=== PATIENT | female | born 1955 | race Caucasian/White ===

== ENCOUNTER 2020-03-10 13:11 | Emergency (ER) | payer MEDICARE, OTHER ==
[~2020-03-10] VITALS: Ht 157.4 cm; Wt 81.8 kg
[2020-03-10] MEDS ORDERED: IBUP-1780 PO (13:53)
--- NOTE | 2020-03-10 13:53 | ED General ---
General Chief Complaint: General Problems/Pain Stated Complaint: GENERAL PAIN History of Present Illness Date Seen by Provider: Mar 10, 2020 Time Seen by Provider: 13:45 Initial Comments 64-year-old female presents to the ER by private vehicle with complaints of generalized aches and pains all over her body. Asked to localize her pain, she states well she's got pain in her right hip since having a hip replacement with some pain in her leg on the right side as well. She states the surgery was a few weeks ago to a few months ago in [place]. Asked to her primary care doctor was, she states she doesn't have one as she just moved to this area a couple weeks ago. States she doesn't have any pain medication. Denies any recent injury or trauma or any new or acute pain. Allergies and Home Medications Allergies Coded Allergies: No Known Drug Allergies (Unverified , 03/10/20) Home Medications Ibuprofen 800 Mg Tablet, 800 MG PO Q8H PRN for PAIN Prescribed by: IZZY VAIL on 03/10/20 6053 Patient Home Medication List Home Medication List Reviewed: Yes Review of Systems Review of Systems Constitutional: see HPI; No dizziness, No fever, No malaise, No weakness Respiratory: No cough, No short of breath Cardiovascular: No chest pain, No edema Gastrointestinal: No abdominal pain, No nausea, No vomiting Musculoskeletal: see HPI; No neck pain Past Ynyqmnq-Ohomys-Imiodi Hx Past Med/Social Hx: Reviewed Nursing Past Med/Soc Hx Patient Social History Recent Foreign Travel: No Contact w/Someone Who Travel: No Physical Exam Vital Signs Capillary Refill : Height, Weight, BMI Height: '" Weight: lbs. oz. kg; BMI Method: General Appearance: No Apparent Distress, WD/WN Respiratory: Chest Non Tender, Lungs Clear, Normal Breath Sounds Cardiovascular: Regular Rate, Rhythm, No Edema, No Gallop, No JVD, No Murmur, Normal Peripheral Pulses Gastrointestinal: Non Tender, Soft Extremity: Normal Capillary Refill, Normal Inspection, Non Tender, No Calf Tenderness Neurologic/Psychiatric: Alert, Oriented x3, No Motor/Sensory Deficits, Normal Mood/Affect Skin: Normal Color, Warm/Dry Progress/Results/Core Measures Suspected Sepsis SIRS Temperature: Pulse: Respiratory Rate: Blood Pressure / Mean: Results/Orders Vital Signs/I&O Capillary Refill : Departure Impression Primary Impression: Chronic pain Qualified Codes: G89.29 - Other chronic pain Disposition: HOME, SELF-CARE Condition: Stable Departure-Patient Inst. Decision time for Depature: 13:51 Referrals: [facility]/ [facility],LOCAL PHYSICIAN (PCP) Primary Care Physician EMMA SULLIVAN MD Patient Instructions: Chronic Pain (DC) Add. Discharge Instructions: Call the [facility] to establish a Primary care doctor in the next couple weeks. Call Dr Sullivan's office regarding pain in your R hip All discharge instructions reviewed with patient and/or family. Voiced understanding. Scripts Ibuprofen (Ibuprofen) 800 Mg Tablet 800 MG PO Q8H PRN for PAIN, #30 TAB 0 Refills Prov: IZZY VAIL DO 03/10/20 IZZY VAIL DO Mar 10, 2020 13:53
[2020-03-10 14:04] VITALS: BP 159/71
== END 2020-03-10 14:04 | disposition home or self-care (01) ==
LOC: EDUNIT# 13:11 → ER FS 13:14
DX: G89.29 Other chronic pain (principal)
CPT/HCPCS: 99281

== ENCOUNTER 2020-04-07 13:51 | Inpatient (IN) | payer MEDICARE ==
[~2020-04-07] VITALS: Ht 165.1 cm; Wt 76.5 kg
[~2020-04-07 13:51] MED LIST: IBUP-1780 PO
[2020-04-07 14:11] LABS: BASOPHILS # (AUTO) 0.1 10^3/uL (0.0-0.1); BASOPHILS % (AUTO) 0 % (0-10); EOSINOPHILS % (AUTO) 0 % (0-10); HEMATOCRIT 43 % (35-52); LYMPHOCYTES # (AUTO) 1.4 X 10^3 (1.0-4.0); LYMPHOCYTES % (AUTO) 10 % (12-44); MEAN CORPUSCULAR HEMOGLOBIN 25 PG (25-34); MEAN CORPUSCULAR HGB CONC 30 G/DL (32-36); MEAN CORPUSCULAR VOLUME 84 FL (80-99); MEAN PLATELET VOLUME 12.3 FL (7.4-10.4); MONOCYTES # (AUTO) 0.8 X 10^3 (0.0-1.0); MONOCYTES % (AUTO) 6 % (0-12); NEUTROPHILS % (AUTO) 83 % (42-75); PLATELET COUNT 363 10^3/uL (130-400); WHITE BLOOD COUNT 14.4 10^3/uL (4.3-11.0)
[2020-04-07] MEDS: NS IV 1000 ML 1,000 ML IV SCH ×2 (14:11→15:08)
--- NOTE | 2020-04-07 14:11 | ED General ---
General Chief Complaint: Altered Mental Status Stated Complaint: UNRESPONSIVE Source of Information: Patient History of Present Illness Date Seen by Provider: Apr 07, 2020 Time Seen by Provider: 13:55 Initial Comments 64-year-old female presents via EMS and unresponsive state. Called to a hotel room where she was found naked in on the bed and unresponsive. An IO was started in her left lower extremity, noted heart rate in the 170s and atrial fibrillation, given 15 mg of diltiazem en route as well as some IV fluids with no significant change upon arrival. Patient does open her eyes spontaneously and attempts to answer some questions, however incoherent. Blood sugar "high". PMHx- signif for IDDM and CBAG Allergies and Home Medications Allergies Coded Allergies: No Known Drug Allergies (Unverified , 03/10/20) Home Medications Ibuprofen 800 Mg Tablet, 800 MG PO Q8H PRN for PAIN Prescribed by: IZZY VAIL on 03/10/20 1353 Patient Home Medication List Home Medication List Reviewed: Yes Review of Systems Review of Systems Constitutional: other (unresponsive- unable to complete ROS due to pt Mental Status) Past Quwcber-Casbpb-Dzepxl Hx Past Med/Social Hx: Reviewed Nursing Past Med/Soc Hx Patient Social History Alcohol Use: Denies Use Recreational Drug Use: No Smoking Status: Unknown if Ever Smoked 2nd Hand Smoke Exposure: No Recent Foreign Travel: No Contact w/Someone Who Travel: No Recent Hopitalizations: No Seasonal Allergies Seasonal Allergies: No Past Medical History Surgeries: Yes (Right hip, Left ankle) Appendectomy, Section, Gallbladder, Hysterectomy, Orthopedic Respiratory: Yes COPD Cardiac: No High Cholesterol, Hypertension Neurological: Yes Neuropathy Genitourinary: No Gastrointestinal: Yes Gastroesophageal Reflux Musculoskeletal: Yes (Congenital Left hand deformity) Endocrine: Yes Diabetes, Insulin dep HEENT: No Cancer: No Psychosocial: Yes Bipolar Integumentary: No Blood Disorders: No Physical Exam Vital Signs Vital Signs - First Documented 04/07/20 13:51 Temp 36.8 Pulse 141 Resp 15 B/P (MAP) 110/89 (96) Pulse Ox 100 O2 Flow Rate 4.00 Capillary Refill : Height, Weight, BMI Height: '" Weight: lbs. oz. kg; 33.00 BMI Method: General Appearance: No Apparent Distress, WD/WN, Other (unresponsive) Eyes: Bilateral Eye PERRL, Bilateral Eye EOMI HEENT: PERRL/EOMI, Other (severely dry MM and lips) Neck: Non Tender, Supple Respiratory: Chest Non Tender, Lungs Clear, Normal Breath Sounds, No Accessory Muscle Use, No Respiratory Distress Cardiovascular: Normal Peripheral Pulses, Irregularly Irregular; No JVD; Tachycardia Gastrointestinal: Non Tender, Soft, Other (firmness Right abdominal- mass?) Back: No CVA Tenderness, No Vertebral Tenderness Extremity: Normal Inspection, Non Tender Neurologic/Psychiatric: Other (unresponsive) Skin: Normal Color, Warm/Dry Focused Exam Lactate Level 04/07/20 14:10: Lactic Acid Level 1.77 Lactic Acid Level Laboratory Tests Test 04/07/20 14:10 Lactic Acid Level 1.77 MMOL/L (0.50-2.00) Progress/Results/Core Measures Suspected Sepsis SIRS Temperature: Pulse: Respiratory Rate: Laboratory Tests 04/07/20 13:52: White Blood Count 14.4H Blood Pressure / Mean: 04/07/20 14:10: Lactic Acid Level 1.77 Laboratory Tests 04/07/20 13:52: Creatinine 1.43H, INR Comment 1.1, Platelet Count 363, Total Bilirubin 0.4 Results/Orders Lab Results Laboratory Tests Test 04/07/20 13:52 04/07/20 14:00 04/07/20 14:05 04/07/20 14:10 Range/Units White Blood Count 14.4 H 4.3-11.0 10^3/uL Red Blood Count 5.10 4.35-5.85 10^6/uL Hemoglobin 13.0 11.5-16.0 G/DL Hematocrit 43 35-52 % Mean Corpuscular Volume 84 80-99 FL Mean Corpuscular Hemoglobin 25 25-34 PG Mean Corpuscular Hemoglobin Concent 30 L 32-36 G/DL Red Cell Distribution Width 15.1 H 10.0-14.5 % Platelet Count 363 130-400 10^3/uL Mean Platelet Volume 12.3 H 7.4-10.4 FL Immature Granulocyte % (Auto) 1 % Neutrophils (%) (Auto) 83 H 42-75 % Lymphocytes (%) (Auto) 10 L 12-44 % Monocytes (%) (Auto) 6 0-12 % Eosinophils (%) (Auto) 0 0-10 % Basophils (%) (Auto) 0 0-10 % Neutrophils # (Auto) 12.0 H 1.8-7.8 X 10^3 Lymphocytes # (Auto) 1.4 1.0-4.0 X 10^3 Monocytes # (Auto) 0.8 0.0-1.0 X 10^3 Eosinophils # (Auto) 0.0 0.0-0.3 10^3/uL Basophils # (Auto) 0.1 0.0-0.1 10^3/uL Immature Granulocyte # (Auto) 0.1 0.0-0.1 10^3/uL Neutrophils % (Manual) 81 % Lymphocytes % (Manual) 15 % Monocytes % (Manual) 4 % Blood Morphology Comment NORMAL Prothrombin Time 14.8 H 12.2-14.7 SEC INR Comment 1.1 0.8-1.4 Sodium Level 141 135-145 MMOL/L Potassium Level 5.3 H 3.6-5.0 MMOL/L Chloride Level 99 98-107 MMOL/L Carbon Dioxide Level 12 L 21-32 MMOL/L Anion Gap 30 H 5-14 MMOL/L Blood Urea Nitrogen 56 H 7-18 MG/DL Creatinine 1.43 H 0.60-1.30 MG/DL Estimat Glomerular Filtration Rate 37 BUN/Creatinine Ratio 39 Glucose Level 811 *H 70-105 MG/DL Calcium Level 10.3 H 8.5-10.1 MG/DL Corrected Calcium 10.5 H 8.5-10.1 MG/DL Magnesium Level 3.2 H 1.6-2.4 MG/DL Total Bilirubin 0.4 0.1-1.0 MG/DL Aspartate Amino Transf (AST/SGOT) 15 5-34 U/L Alanine Aminotransferase (ALT/SGPT) 11 0-55 U/L Alkaline Phosphatase 205 H 40-136 U/L Troponin I < 0.30 <0.30 NG/ML Total Protein 8.1 6.4-8.2 GM/DL Albumin 3.8 3.2-4.5 GM/DL Acetaminophen Level < 10 L 10-30 UG/ML Serum Alcohol < 10 <10 MG/DL Blood Gas Puncture Site Blood Gas Patient Temperature Arterial Blood pH 7.29 *L 7.37-7.43 Arterial Blood Partial Pressure CO2 27 L 35-45 MMHG Arterial Blood Partial Pressure O2 208 H 79-93 MMHG Arterial Blood HCO3 13 *L 23-27 MMOL/L Arterial Blood Total CO2 13.8 L 21.0-31.0 MMOL/L Arterial Blood Oxygen Saturation 100 94-100 % Arterial Blood Base Excess -12.1 L -2.5-2.5 MMOL/L Luke Test Blood Gas Ventilator Setting Blood Gas Inspired Oxygen Urine Color YELLOW Urine Clarity CLEAR Urine pH 6.0 5-9 Urine Specific [place] <=1.005 1.016-1.022 Urine Protein NEGATIVE NEGATIVE Urine Glucose (UA) 3+ H NEGATIVE Urine Ketones 1+ H NEGATIVE Urine Nitrite NEGATIVE NEGATIVE Urine Bilirubin NEGATIVE NEGATIVE Urine Urobilinogen 0.2 < = 1.0 MG/DL Urine Leukocyte Esterase NEGATIVE NEGATIVE Urine RBC (Auto) NEGATIVE NEGATIVE Urine RBC NONE /HPF Urine WBC NONE /HPF Urine Squamous Epithelial Cells 0-2 /HPF Urine Crystals NONE /LPF Urine Bacteria NEGATIVE /HPF Urine Casts NONE /LPF Urine Mucus NEGATIVE /LPF Urine Yeast FEW H /HPF Urine Culture Indicated NO Urine Opiates Screen POSITIVE H NEGATIVE Urine Oxycodone Screen NEGATIVE NEGATIVE Urine Methadone Screen NEGATIVE NEGATIVE Urine Propoxyphene Screen NEGATIVE NEGATIVE Urine Barbiturates Screen NEGATIVE NEGATIVE Ur Tricyclic Antidepressants Screen POSITIVE H NEGATIVE Urine Phencyclidine Screen NEGATIVE NEGATIVE Urine Amphetamines Screen NEGATIVE NEGATIVE Urine Methamphetamines Screen NEGATIVE NEGATIVE Urine Benzodiazepines Screen POSITIVE H NEGATIVE Urine Cocaine Screen NEGATIVE NEGATIVE Urine Cannabinoids Screen NEGATIVE NEGATIVE Lactic Acid Level 1.77 0.50-2.00 MMOL/L My Orders Orders - IZZY VAIL DO Cbc With Automated Diff (04/07/20 13:56) Comprehensive Metabolic Panel (04/07/20 13:56) Alcohol (04/07/20 13:56) Acetaminophen (04/07/20 13:56) Lactic Acid Analyzer (04/07/20 13:56) Drug Screen Stat (Urine) (04/07/20 13:56) Magnesium (04/07/20 13:56) Protime With Inr (04/07/20 13:56) Troponin I Fs (04/07/20 13:56) Urinalysis (04/07/20 13:56) Ed Iv/Invasive Line Start (04/07/20 13:56) Ekg Tracing (04/07/20 13:56) Chest 1 View Ap/Pa Only (04/07/20 13:56) Ct Head Wo (04/07/20 13:56) Ns Iv 1000 Ml (Sodium Chloride 0.9%) (04/07/20 14:00) Diltiazem Injection (Cardizem Injection) (04/07/20 14:00) Manual Differential (04/07/20 13:52) Arterial Blood Gas (04/07/20 14:30) Insulin Regular Drip (Myxredlin 100 Unit (04/07/20 14:45) Medications Given in ED Current Medications Medications Dose Ordered Sig/Divina Route Start Time Stop Time Status Last Admin Dose Admin Diltiazem HCl 20 mg ONCE ONCE IVP 04/07/20 14:00 04/07/20 14:01 DC 04/07/20 14:11 20 MG Vital Signs/I&O 04/07/20 13:51 Temp 36.8 Pulse 141 Resp 15 B/P (MAP) 110/89 (96) Pulse Ox 100 O2 Flow Rate 4.00 Capillary Refill : ECG Initial ECG Impression Date: Apr 07, 2020 Initial ECG Impression Time: 14:00 Initial ECG Rate: 164 Initial ECG Rhythm: A Fib/Flutter Initial ECG Comparisson: No Previous ECG Available Departure Communication (Admissions) Time/Spoke to Admitting Phy: 14:[address] Wood and he accepts for admission to ICU. Pt w improving MS, starting on Insulin gtt. Impression Primary Impression: DKA (diabetic ketoacidoses) Qualified Codes: E10.10 - Type 1 diabetes mellitus with ketoacidosis without coma Additional Impression: Altered mental status Qualified Codes: R41.82 - Altered mental status, unspecified Disposition: 09 ADMITTED INPATIENT Condition: Stable Admissions Decision to Admit Reason: Admit from ER (General) Decision to Admit/Date: Apr 07, 2020 Time/Decision to Admit Time: 14:50 Departure-Patient Inst. Referrals: NO,LOCAL PHYSICIAN (PCP/Family) Primary Care Physician IZZY VAIL DO Apr 07, 2020 14:11
[2020-04-07 14:20] LABS: INR 1.1 (0.8-1.4); PROTHROMBIN TIME PATIENT 14.8 SEC (12.2-14.7)
[2020-04-07 14:25] LABS: BACTERIA,URINE NEGATIVE /HPF; BILIRUBIN,URINE NEGATIVE (NEGATIVE); CLARITY,URINE CLEAR; COLOR,URINE YELLOW; GLUCOSE, URINE (UA) 3+ (NEGATIVE); KETONES,URINE 1+ (NEGATIVE); LEUKOCYTE ESTERASE ,URINE NEGATIVE (NEGATIVE); NITRITE,URINE NEGATIVE (NEGATIVE); PROTEIN,URINE NEGATIVE (NEGATIVE); SQUAMOUS EPITHELIAL CELL,UR 0-2 /HPF; YEAST,URINE FEW /HPF
[2020-04-07 14:31] LABS: BUN/CREATININE RATIO 39; CARBON DIOXIDE 12 MMOL/L (21-32); CHLORIDE 99 MMOL/L (98-107); CREATININE SERUM 1.43 MG/DL (0.60-1.30); GFR ESTIMATED 37; POTASSIUM 5.3 MMOL/L (3.6-5.0); SODIUM 141 MMOL/L (135-145)
[2020-04-07 14:32] LABS: ACETAMINOPHEN < 10 UG/ML (10-30); ALANINE AMINOTRANSFERASE 11 U/L (0-55); ALBUMIN 3.8 GM/DL (3.2-4.5); ALKALINE PHOSPHATASE 205 U/L (40-136); BILIRUBIN,TOTAL 0.4 MG/DL (0.1-1.0); CALCIUM 10.3 MG/DL (8.5-10.1); MAGNESIUM 3.2 MG/DL (1.6-2.4); TOTAL PROTEIN 8.1 GM/DL (6.4-8.2)
--- NOTE | 2020-04-07 14:35 | Diagnostic Imaging Report ---
INDICATION: Patient found unresponsive. EXAMINATION: Frontal chest obtained at 02:19 p.m. FINDINGS: There is cardiomegaly and poststernotomy change. There is no pneumothorax or definite focal infiltrate. The left lung base is not well seen but is probably technical. IMPRESSION: Cardiomegaly and poststernotomy change. Limited study but no definite infiltrate. Left lung base is not well seen due to technique, consider follow-up as indicated. Dictated by: Dictated on workstation # [id number]
[2020-04-07 14:36] LABS: GLUCOSE 811 MG/DL (70-105)
--- NOTE | 2020-04-07 14:36 | Diagnostic Imaging Report ---
PROCEDURE: CT head without contrast. TECHNIQUE: Multiple contiguous axial images were obtained through the brain without the use of intravenous contrast. Auto Exposure Controls were utilized during the CT exam to meet ALARA standards for radiation dose reduction. INDICATION: Unresponsive. COMPARISON: No prior studies are available for comparison. FINDINGS: Ventricles and sulci are appropriate for the patient's age. No sulcal effacement or midline shift is identified. No acute intra-axial or extra-axial hemorrhage is detected. Cisterns are patent. Visualized paranasal sinuses are clear. IMPRESSION: No acute intracranial process is detected. Dictated by: Dictated on workstation # [id number]
[2020-04-07 14:39] LABS: ABG BASE EXCESS -12.1 MMOL/L (-2.5-2.5); ABG OXYGEN SATURATION 100 % (94-100); ABG PCO2 27 MMHG (35-45); ABG PH 7.29 (7.37-7.43); ABG PO2 208 MMHG (79-93); ABG TCO2 13.8 MMOL/L (21.0-31.0)
[2020-04-07 14:43] LABS: AMPHETAMINE SCREEN, URINE NEGATIVE (NEGATIVE); BARBITURATE SCREEN URINE NEGATIVE (NEGATIVE); BENZODIAZEPINES SCREEN URINE POSITIVE (NEGATIVE); CANNABINOID SCREEN, URINE NEGATIVE (NEGATIVE); COCAINE SCREEN URINE NEGATIVE (NEGATIVE); METHADONE STAT NEGATIVE (NEGATIVE); METHAMPHETAMINE SCREEN URINE S NEGATIVE (NEGATIVE); OPIATE SCREEN URINE POSITIVE (NEGATIVE); OXYCODONE STAT NEGATIVE (NEGATIVE); PROPOXYPHENE STAT NEGATIVE (NEGATIVE); TRICYCLIC ANTIDEPRESSANTS SCRE POSITIVE (NEGATIVE)
[2020-04-07 14:48] LABS: LYMPHOCYTES % (MANUAL) 15 %; MONOCYTES % (MANUAL) 4 %; NEUTROPHILS % (MANUAL) 81 %; RBC MORPH NORMAL
[2020-04-07] MEDS ORDERED: NS IV 1000 ML 1,000 ML ONE (16:36)
--- NOTE | 2020-04-07 16:49 | NUR ---
DR ZAVALA NOTIFIED OF PT'S HR 120S-140S. AFIB/AFLUTTER.
[2020-04-07] MEDS ORDERED: NS IV 1000 ML 1,000 ML IV SCH (16:53)
[2020-04-07] MEDS ORDERED: POTASSIUM CL 10MEQ/50ML IVPB 50 ML IV SCH (17:00)
[2020-04-07] MEDS ORDERED: CATHETER FLUSH 10 ML SYR IV PRN (17:00)
[2020-04-07] MEDS ORDERED: ENOXAPARIN 100 MG/1 ML (LOVENOX) SYR SC SCH (17:45)
[2020-04-07] MEDS ORDERED: dilTIAZem DRIP PRE-MIX 125 ML IV SCH (17:45)
[2020-04-07 17:50] LABS: CREATININE SERUM 1.87 MG/DL (0.60-1.30); POTASSIUM 3.9 MMOL/L (3.6-5.0)
[2020-04-07] MEDS: ENOXAPARIN 80 MG/0.8 ML (LOVENOX) SYR SC SCH (18:05)
[2020-04-07 18:10] LABS: CALCIUM 9.4 MG/DL (8.5-10.1)
[2020-04-07] MEDS: 1/2 NS IV SOLUTION 1,000 ML IV SCH ×3 (18:12→22:50)
[2020-04-07] MEDS: POTASSIUM CL 10MEQ/50ML IVPB 50 ML IV SCH ×3 (18:12→23:02)
[2020-04-07 20:07] LABS: CALCIUM 8.8 MG/DL (8.5-10.1); CREATININE SERUM 1.66 MG/DL (0.60-1.30); POTASSIUM 4.1 MMOL/L (3.6-5.0)
[2020-04-08] MEDS: POTASSIUM CL 10MEQ/50ML IVPB 50 ML IV SCH ×3 (01:07→08:17)
[2020-04-08] MEDS: D5 1/2 NS 1000 ML IV SOLUTION 1,000 ML IV SCH ×2 (01:18→05:44)
--- NOTE | 2020-04-08 03:46 | Pulmonary Consultation ---
IRENE LYNN MED STUDENT 04/08/20 0346: History of Present Illness History of Present Illness Date Seen by Provider: Apr 08, 2020 Time Seen by Provider: 03:30 Date of Admission History of Present Illness CC; unresponsive, hyperglycemia HPI: Cristina Roberts is a 67 y/o female with hx of DM and s/p CABG who presents via EMS after being found unresponsive in her hotel room yesterday. Patient was found naked on her bed and unresponsive, HR in 170s w/afib. EMS placed an IO in LLE and gave 15mg Diltiazam with no change on arrival. Patient was able to open eyes in ER but answered questions incoherently. Cxr inconclusive but no obvious pathology per report, CT head normal, EKG showed Afib/aflutter, glucose at 811, Anion gap of 30, Creatinine at 1.43, pH of 7.39, BHB >4.50, positive urine ketones. Cardiology was consulted for afib. She was started on fluids and insulin for hyperglycemia as well as Diltiazam for afib. Patient currently able to answer questions and follow commands coherently. states she feels miserable but currently denies CP, SOB, abdominal pain and vomiting. Patient dozing off during exam. Allergies and Home Medications Allergies Coded Allergies: No Known Drug Allergies (Unverified , 03/10/20) Home Medications Ibuprofen 800 Mg Tablet, 800 MG PO Q8H PRN for PAIN Prescribed by: IZZY VAIL on 03/10/20 1353 Past Vtwwhsr-Bjaomi-Lcmzoc Hx Past Med/Social Hx: Reviewed Nursing Past Med/Soc Hx Patient Social History Alcohol Use: Denies Use Recreational Drug Use: No Smoking Status: Unknown if Ever Smoked 2nd Hand Smoke Exposure: No Recent Foreign Travel: No Contact w/Someone Who Travel: No Recent Infectious Disease Expo: No Recent Hopitalizations: No Seasonal Allergies Seasonal Allergies: No Past Medical History Surgeries: Yes (Right hip, Left ankle) Appendectomy, Section, Gallbladder, Hysterectomy, Orthopedic Respiratory: Yes COPD Cardiac: No High Cholesterol, Hypertension Neurological: Yes Neuropathy Genitourinary: No Gastrointestinal: Yes Gastroesophageal Reflux Musculoskeletal: Yes (Congenital Left hand deformity) Endocrine: Yes Diabetes, Insulin dep HEENT: No Cancer: No Psychosocial: Yes Bipolar Integumentary: No Blood Disorders: No Family Medical History Patient reports no known family medical history. Review of Systems Constitutional: Malaise; No: Fever, Chills Eyes: No: Conjunctivae inflammation, Eyelid inflammation ENT: No: Mouth pain, Mouth swelling Respiratory: Cough; No: Shortness of breath, Wheezing Cardiovascular: No: Chest Pain, Edema Gastrointestinal: No: Vomiting, Abdominal Pain Genitourinary: No Incontinence, No Hematuria Musculoskeletal: No: hand pain, leg pain Skin: No: Rash, Jaundice Neurological: Confusion (apparently resolved) Sepsis Event Evaluation Height, Weight, BMI Height: '" Weight: lbs. oz. kg; 27.22 BMI Method: Exam Exam Vital Signs Date Time Temp Pulse Resp B/P (MAP) Pulse Ox O2 Delivery O2 Flow Rate FiO2 04/08/20 02:00 100 Room Air 04/08/20 01:00 100 04/08/20 00:00 101 14 116/71 100 Room Air 04/08/20 00:00 100 Room Air 04/07/20 23:46 36.6 04/07/20 23:00 101 13 128/69 100 Room Air 04/07/20 22:00 106 14 122/71 100 Room Air 04/07/20 21:00 97 15 130/67 100 Room Air 04/07/20 20:00 100 Room Air 04/07/20 20:00 112 15 123/81 100 Room Air 04/07/20 19:27 36.9 04/07/20 19:00 114 04/07/20 19:00 101 13 112/69 100 Room Air 04/07/20 18:00 117 11 115/86 100 Room Air 04/07/20 17:05 135 04/07/20 17:00 126 20 131/81 99 Room Air 04/07/20 16:45 36.7 04/07/20 16:30 151 23 136/86 96 Room Air 04/07/20 16:25 100 Room Air 04/07/20 15:44 36.8 128 16 122/57 (96) 98 Room Air 04/07/20 13:51 36.8 141 15 110/89 (96) 100 4.00 l I & O 04/08/20 07:00 Intake Total 7250 ml Output Total 1200 ml Balance 6050 ml Height & Weight Height: '" Weight: lbs. oz. kg; 27.22 BMI Method: General Appearance: No Apparent Distress, WD/WN, Other (unresponsive) HEENT: PERRL/EOMI, Other (severely dry MM and lips) Neck: Non Tender, Supple Respiratory: Chest Non Tender, Lungs Clear, Normal Breath Sounds, No Accessory Muscle Use, No Respiratory Distress Cardiovascular: Normal Peripheral Pulses, Irregularly Irregular; No JVD; Tachycardia Capillary Refill: Less Than 3 Seconds Peripheral Pulses: 2+ Carotid (R), 2+ Carotid (L); 1+ Dorsalis Pedis (R), 1+ Left Dors-Pedis (L); 2+ Radial Pulses (R), 2+ Radial Pulses (L) Gastrointestinal: non tender, soft, no organomegaly, no pulsatile mass Extremity: Normal Capillary Refill, Normal Inspection, Non Tender, No Calf Tenderness, No Pedal Edema Neurologic/Psychiatric: Alert, Oriented x3, Normal Mood/Affect, Other Skin: Normal Color, Warm/Dry Results Lab Laboratory Tests 04/07/20 13:52 04/07/20 17:27 04/07/20 19:45 Assessment/Plan Assessment/Plan Diabetic Ketoacidosis w/ HAGMA -improving -maintain insulin drip, D5/Kcl -NS IV Afib -cardiology consulted -maintain Diltiazam drip possible DAVID -IV fluids, monitor Hypernatremia, -likely from dehydration, continue IVF and monitor Hyperchloremia -as above TIKI RITTER DO 04/08/20 0430: Allergies and Home Medications Allergies Coded Allergies: No Known Drug Allergies (Unverified , 03/10/20) Home Medications Ibuprofen 800 Mg Tablet, 800 MG PO Q8H PRN for PAIN Prescribed by: IZZY VAIL on 03/10/20 1353 Past Jhlkvzp-Pnxlqk-Lrlydc Hx Family Medical History Patient reports no known family medical history. Review of Systems Time Seen by Provider: 04:29 Assessment/Plan Assessment/Plan Acute DKA -Labs pending Afib -cardiology consulted -maintain Diltiazam drip possible DAVID -IV fluids, monitor Hypernatremia, -likely from dehydration, continue IVF and monitor Hyperchloremia -as above IRENE LYNN MED STUDENT Apr 08, 2020 03:46 TIKI RITTER DO Apr 08, 2020 04:30
[2020-04-08] MEDS: 1/2 NS IV SOLUTION 1,000 ML IV SCH (05:13)
[2020-04-08 05:57] LABS: BASOPHILS % (AUTO) 0 % (0-10); EOSINOPHILS % (AUTO) 0 % (0-10); HEMATOCRIT 37 % (35-52); HEMOGLOBIN 12.1 g/dL (11.5-16.0); LYMPHOCYTES % (AUTO) 23 % (12-44); MEAN CORPUSCULAR HEMOGLOBIN 31 pg (25-34); MEAN CORPUSCULAR HGB CONC 33 g/dL (32-36); MEAN CORPUSCULAR VOLUME 92 fL (80-99); MEAN PLATELET VOLUME 9.3 fL (9.0-12.2); MONOCYTES # (AUTO) 0.8 10^3/uL (0.0-1.0); MONOCYTES % (AUTO) 9 % (0-12); NEUTROPHILS % (AUTO) 67 % (42-75); PLATELET COUNT 197 10^3/uL (130-400)
[2020-04-08 06:17] LABS: BUN/CREATININE RATIO 29; CALCIUM 8.6 MG/DL (8.5-10.1); CARBON DIOXIDE 22 MMOL/L (21-32); CHLORIDE 110 MMOL/L (98-107); CREATININE SERUM 0.83 MG/DL (0.60-1.30); GFR ESTIMATED > 60; GLUCOSE 120 MG/DL (70-105); MAGNESIUM 2.3 MG/DL (1.6-2.4); PHOSPHORUS 2.4 MG/DL (2.3-4.7); POTASSIUM 4.6 MMOL/L (3.6-5.0); SODIUM 143 MMOL/L (135-145)
[2020-04-08] MEDS: ENOXAPARIN 80 MG/0.8 ML (LOVENOX) SYR SC SCH (06:39)
--- NOTE | 2020-04-08 07:35 | Diagnostic Imaging Report ---
INDICATION: Dyspnea EXAMINATION: Chest 04/08/2020 COMPARISON: 04/07/2020 FINDINGS: The heart is prominent. Pulmonary vasculature is congested. No ash edema is seen but there is atelectasis versus infiltrate. Left lung base with a tiny adjacent effusion. IMPRESSION: 1. Pulmonary vascular congestion. 2. Possible infiltrate and effusion left lung base. Dictated by: Dictated on workstation # [id number]
--- NOTE | 2020-04-08 09:23 | Consultation-Cardiology ---
HPI-Cardiology Cardiology Consultation Date of Consultation 04/08/20 Date of Admission Time Seen by Provider: 09:20 Indication: atrial fibrillation HPI 67 years old lady with history of coronary artery disease, CABG, diabetes mellitus, patient had change in mental status, she was found unresponsive in her hotel room. Tachycardic. On my evaluation she is more awake and oriented. Reported that she follows with a woods boss in [place]. Denied any chest pain. No palpitation, was having some nausea and fatigue. Home Medications & Allergies Allergies: Coded Allergies: No Known Drug Allergies (Unverified , 03/10/20) Home Medication List Reviewed: Yes ETT-Pzftlk-Culpxr Hx Patient Social History Alcohol Use: Denies Use Recreational Drug Use: No Smoking Status: Unknown if Ever Smoked 2nd Hand Smoke Exposure: No Recent Foreign Travel: No Recent Infectious Disease Expo: No Recent Hopitalizations: No Past Medical History Discussed below Family Medical History Family History: Patient reports no known family medical history. Review of Systems-General Review of Systems Constitutional: malaise, weakness EENTM: see HPI, no symptoms reported Respiratory: see HPI; No cough, No dyspnea on exertion, No hemoptysis, No orthopnea, No phlegm, No short of breath, No stridor, No wheezing, No other Cardiovascular: see HPI; No chest pain, No edema, No Hx of Intervention, No palpitations, No syncope, No vascular heart diseas, No other Gastrointestinal: see HPI, nausea Genitourinary: no symptoms reported, see HPI Musculoskeletal: no symptoms reported, see HPI Skin: no symptoms reported, see HPI Psychiatric/Neurological: No Symptoms Reported, See HPI Reviewed Test Results Reviewed Test Results Lab Laboratory Tests Test 04/07/20 13:52 04/07/20 14:00 04/07/20 14:05 04/07/20 14:10 Range/Units White Blood Count 14.4 H 4.3-11.0 10^3/uL Red Blood Count 5.10 4.35-5.85 10^6/uL Hemoglobin 13.0 11.5-16.0 G/DL Hematocrit 43 35-52 % Mean Corpuscular Volume 84 80-99 FL Mean Corpuscular Hemoglobin 25 25-34 PG Mean Corpuscular Hemoglobin Concent 30 L 32-36 G/DL Red Cell Distribution Width 15.1 H 10.0-14.5 % Platelet Count 363 130-400 10^3/uL Mean Platelet Volume 12.3 H 7.4-10.4 FL Immature Granulocyte % (Auto) 1 % Neutrophils (%) (Auto) 83 H 42-75 % Lymphocytes (%) (Auto) 10 L 12-44 % Monocytes (%) (Auto) 6 0-12 % Eosinophils (%) (Auto) 0 0-10 % Basophils (%) (Auto) 0 0-10 % Neutrophils # (Auto) 12.0 H 1.8-7.8 X 10^3 Lymphocytes # (Auto) 1.4 1.0-4.0 X 10^3 Monocytes # (Auto) 0.8 0.0-1.0 X 10^3 Eosinophils # (Auto) 0.0 0.0-0.3 10^3/uL Basophils # (Auto) 0.1 0.0-0.1 10^3/uL Immature Granulocyte # (Auto) 0.1 0.0-0.1 10^3/uL Neutrophils % (Manual) 81 % Lymphocytes % (Manual) 15 % Monocytes % (Manual) 4 % Blood Morphology Comment NORMAL Prothrombin Time 14.8 H 12.2-14.7 SEC INR Comment 1.1 0.8-1.4 Sodium Level 141 135-145 MMOL/L Potassium Level 5.3 H 3.6-5.0 MMOL/L Chloride Level 99 98-107 MMOL/L Carbon Dioxide Level 12 L 21-32 MMOL/L Anion Gap 30 H 5-14 MMOL/L Blood Urea Nitrogen 56 H 7-18 MG/DL Creatinine 1.43 H 0.60-1.30 MG/DL Estimat Glomerular Filtration Rate 37 BUN/Creatinine Ratio 39 Glucose Level 811 *H 70-105 MG/DL Calcium Level 10.3 H 8.5-10.1 MG/DL Corrected Calcium 10.5 H 8.5-10.1 MG/DL Magnesium Level 3.2 H 1.6-2.4 MG/DL Total Bilirubin 0.4 0.1-1.0 MG/DL Aspartate Amino Transf (AST/SGOT) 15 5-34 U/L Alanine Aminotransferase (ALT/SGPT) 11 0-55 U/L Alkaline Phosphatase 205 H 40-136 U/L Troponin I < 0.30 <0.30 NG/ML Total Protein 8.1 6.4-8.2 GM/DL Albumin 3.8 3.2-4.5 GM/DL Acetaminophen Level < 10 L 10-30 UG/ML Serum Alcohol < 10 <10 MG/DL Blood Gas Puncture Site Blood Gas Patient Temperature Arterial Blood pH 7.29 *L 7.37-7.43 Arterial Blood Partial Pressure CO2 27 L 35-45 MMHG Arterial Blood Partial Pressure O2 208 H 79-93 MMHG Arterial Blood HCO3 13 *L 23-27 MMOL/L Arterial Blood Total CO2 13.8 L 21.0-31.0 MMOL/L Arterial Blood Oxygen Saturation 100 94-100 % Arterial Blood Base Excess -12.1 L -2.5-2.5 MMOL/L Luke Test Blood Gas Ventilator Setting Blood Gas Inspired Oxygen Urine Color YELLOW Urine Clarity CLEAR Urine pH 6.0 5-9 Urine Specific [place] <=1.005 1.016-1.022 Urine Protein NEGATIVE NEGATIVE Urine Glucose (UA) 3+ H NEGATIVE Urine Ketones 1+ H NEGATIVE Urine Nitrite NEGATIVE NEGATIVE Urine Bilirubin NEGATIVE NEGATIVE Urine Urobilinogen 0.2 < = 1.0 MG/DL Urine Leukocyte Esterase NEGATIVE NEGATIVE Urine RBC (Auto) NEGATIVE NEGATIVE Urine RBC NONE /HPF Urine WBC NONE /HPF Urine Squamous Epithelial Cells 0-2 /HPF Urine Crystals NONE /LPF Urine Bacteria NEGATIVE /HPF Urine Casts NONE /LPF Urine Mucus NEGATIVE /LPF Urine Yeast FEW H /HPF Urine Culture Indicated NO Urine Opiates Screen POSITIVE H NEGATIVE Urine Oxycodone Screen NEGATIVE NEGATIVE Urine Methadone Screen NEGATIVE NEGATIVE Urine Propoxyphene Screen NEGATIVE NEGATIVE Urine Barbiturates Screen NEGATIVE NEGATIVE Ur Tricyclic Antidepressants Screen POSITIVE H NEGATIVE Urine Phencyclidine Screen NEGATIVE NEGATIVE Urine Amphetamines Screen NEGATIVE NEGATIVE Urine Methamphetamines Screen NEGATIVE NEGATIVE Urine Benzodiazepines Screen POSITIVE H NEGATIVE Urine Cocaine Screen NEGATIVE NEGATIVE Urine Cannabinoids Screen NEGATIVE NEGATIVE Lactic Acid Level 1.77 0.50-2.00 MMOL/L Test 04/07/20 16:36 04/07/20 17:23 04/07/20 17:27 04/07/20 18:10 Range/Units Glucometer 578 *H 270 H 470 *H 70-110 MG/DL Sodium Level 149 H 135-145 MMOL/L Potassium Level 3.9 3.6-5.0 MMOL/L Chloride Level 111 #H 98-107 MMOL/L Carbon Dioxide Level 13 L 21-32 MMOL/L Anion Gap 22 H 5-14 MMOL/L Blood Urea Nitrogen 49 H 7-18 MG/DL Creatinine 1.87 H 0.60-1.30 MG/DL Estimat Glomerular Filtration Rate 27 BUN/Creatinine Ratio 26 Glucose Level 591 *H 70-105 MG/DL Calcium Level 9.4 8.5-10.1 MG/DL Beta-Hydroxybutyrate (Chem panel) > 4.50 H 0.00-0.27 MMOL/L Test 04/07/20 19:24 04/07/20 19:45 04/07/20 20:22 04/07/20 21:16 Range/Units Glucometer 402 *H 361 H 342 H 70-110 MG/DL Sodium Level 150 H 135-145 MMOL/L Potassium Level 4.1 3.6-5.0 MMOL/L Chloride Level 116 H 98-107 MMOL/L Carbon Dioxide Level 16 L 21-32 MMOL/L Anion Gap 18 H 5-14 MMOL/L Blood Urea Nitrogen 44 H 7-18 MG/DL Creatinine 1.66 H 0.60-1.30 MG/DL Estimat Glomerular Filtration Rate 31 BUN/Creatinine Ratio 27 Glucose Level 453 *H 70-105 MG/DL Calcium Level 8.8 8.5-10.1 MG/DL Test 04/07/20 22:22 04/07/20 23:41 04/08/20 00:34 04/08/20 01:45 Range/Units Glucometer 322 H 244 H 190 H 171 H 70-110 MG/DL Test 04/08/20 02:40 04/08/20 03:27 04/08/20 04:22 04/08/20 05:20 Range/Units Glucometer 169 H 177 H 182 H 70-110 MG/DL White Blood Count 9.0 4.3-11.0 10^3/uL Red Blood Count 3.97 3.80-5.11 10^6/uL Hemoglobin 12.1 11.5-16.0 g/dL Hematocrit 37 35-52 % Mean Corpuscular Volume 92 80-99 fL Mean Corpuscular Hemoglobin 31 25-34 pg Mean Corpuscular Hemoglobin Concent 33 32-36 g/dL Red Cell Distribution Width 13.9 10.0-14.5 % Platelet Count 197 130-400 10^3/uL Mean Platelet Volume 9.3 9.0-12.2 fL Immature Granulocyte % (Auto) 1 % Neutrophils (%) (Auto) 67 42-75 % Lymphocytes (%) (Auto) 23 12-44 % Monocytes (%) (Auto) 9 0-12 % Eosinophils (%) (Auto) 0 0-10 % Basophils (%) (Auto) 0 0-10 % Neutrophils # (Auto) 6.0 1.8-7.8 10^3/uL Lymphocytes # (Auto) 2.0 1.0-4.0 10^3/uL Monocytes # (Auto) 0.8 0.0-1.0 10^3/uL Eosinophils # (Auto) 0.0 0.0-0.3 10^3/uL Basophils # (Auto) 0.0 0.0-0.1 10^3/uL Immature Granulocyte # (Auto) 0.1 0.0-0.1 10^3/uL Sodium Level 143 135-145 MMOL/L Potassium Level 4.6 3.6-5.0 MMOL/L Chloride Level 110 H 98-107 MMOL/L Carbon Dioxide Level 22 21-32 MMOL/L Anion Gap 11 5-14 MMOL/L Blood Urea Nitrogen 24 H 7-18 MG/DL Creatinine 0.83 0.60-1.30 MG/DL Estimat Glomerular Filtration Rate > 60 BUN/Creatinine Ratio 29 Glucose Level 120 H 70-105 MG/DL Calcium Level 8.6 8.5-10.1 MG/DL Phosphorus Level 2.4 2.3-4.7 MG/DL Magnesium Level 2.3 1.6-2.4 MG/DL Beta-Hydroxybutyrate (Chem panel) 0.07 0.00-0.27 MMOL/L Test 04/08/20 05:25 04/08/20 06:38 04/08/20 07:44 04/08/20 08:37 Range/Units Glucometer 210 H 184 H 171 H 153 H 70-110 MG/DL Physical Exam Physical Exam Vital Signs Vital Signs - First Documented 04/07/20 04/07/20 13:51 15:44 Temp 36.8 Pulse 141 Resp 15 B/P (MAP) 110/89 (96) Pulse Ox 100 O2 Delivery Room Air O2 Flow Rate 4.00 Capillary Refill : Less Than 3 SecondsLess Than 3 Seconds Height, Weight, BMI Height: '" Weight: lbs. oz. kg; 27.22 BMI Method: General Appearance: No Apparent Distress, WD/WN, Other (unresponsive) Eyes: Bilateral Eye PERRL, Bilateral Eye EOMI HEENT: PERRL/EOMI, Other (severely dry MM and lips) Neck: Non Tender, Supple Respiratory: Chest Non Tender, Lungs Clear, Normal Breath Sounds, No Accessory Muscle Use, No Respiratory Distress Cardiovascular: Normal Peripheral Pulses, Irregularly Irregular; No JVD; Tachycardia Gastrointestinal: Non Tender, Soft, Other (firmness Right abdominal- mass?) Back: No CVA Tenderness, No Vertebral Tenderness Extremity: Normal Capillary Refill, Normal Inspection, Non Tender, No Calf Tenderness, No Pedal Edema Neurologic/Psychiatric: Alert, Oriented x3, Normal Mood/Affect, Other Skin: Normal Color, Warm/Dry A/P-Cardiology Admission Diagnosis Atrial fibrillation Tachycardia Diabetic ketoacidosis Change in mental status Assessment/Plan Atrial fibrillation with rapid ventricular response, started on diltiazem drip, still borderline tachycardic, I will switch her to short acting diltiazem was 60 mg every 6 hours and monitor her tolerance and response. She will need to start on oral anticoagulation. Diabetic ketoacidosis, blood sugar is better, insulin drip is managed by primary care team Change in mental status, delirium, better at this time, probably secondary to DKA. Improving. Managed by primary care team Coronary artery disease, history of CABG. Start aspirin and monitor Questionable hyperlipidemia, I will evaluate lipid profile Clinical Quality Measures DVT/VTE Risk/Contraindication: Risk Factor Score Per Nursin RFS Level Per Nursing on Admit: 4+=Very High TREMAINE LEGGETT MD Apr 08, 2020 09:23
[2020-04-08 09:44] LABS: CHOLESTEROL 209 MG/DL (< 200); HDL CHOLESTEROL 39 MG/DL (40-60); TRIGLYCERIDES 250 MG/DL (<150); VLDL CHOLESTEROL 50 MG/DL (5-40)
[2020-04-08] MEDS: inSUlin ASPART (NovoLOG) 1 UNIT/0.01 ML (CHARGE PER UNIT) SC SCH ×3 (11:43→21:28)
--- NOTE | 2020-04-08 11:44 | History & Physical-Hospitalist ---
EMANI LEHMAN MED STUDENT 04/08/20 1144: History of Present Illness HPI/Chief Complaint Cathleen Roberts is a 64y/o F with PMH of IDDM, CABG with s/p, peripheral neuropathy, HTN, COPD and Bipolar disorder. Pt presented to the ED at 13:55 with altered AMS via EMS after being found unresponsive in her hotel room. EMS services found her in afib with HR in 170s. Blood glucose at ED was 811, ABG pH 7.29 and BHB 4.5. When I visited with pt this morning, she was fully alert and oriented, pt states she is feeling 'much better'. Pt tells us she was in the hospital two weeks ago for DKA in [place], and that she recently moved to the area but does not have a PCP yet. Pt states she checks are blood glucose regularly and that levels average around 200, pt states she takes her insulin regularly too, but she does confide that she was visiting her son who she hasn't seen in years who is 'not a good person' and that the visit went poorly and she 'is worried for him'. Pt denies any chest pain, palpitations, recent fever, increased cough or sputum production. Source: patient, RN notes reviewed, EMS notes reviewed Date Seen 04/08/20 Attending Physician Gonzales Zavala MD PCP No,Local Physician Referring Physician Date of Admission Apr 07, 2020 at 16:24 Home Medications & Allergies Home Medications Reviewed patient Home Medication Reconciliation performed by pharmacy medication reconciliations pharmacy order entry technician and/or nursing. Patients Allergies have been reviewed. Allergies Allergies Coded Allergies No Known Drug Allergies ([id number]/15/20) Past Bbmizuo-Qzgxsz-Ochncy Hx Past Med/Social Hx: Reviewed Nursing Past Med/Soc Hx Patient Social History Alcohol Use: Denies Use Recreational Drug Use: No Smoking Status: Unknown if Ever Smoked 2nd Hand Smoke Exposure: No Recent Foreign Travel: No Contact w/other who traveled: No Recent Hopitalizations: No Recent Infectious Disease Expo: No Seasonal Allergies Seasonal Allergies: No Past Medical History Surgeries: Appendectomy, Section, Gallbladder, Hysterectomy, Orthopedic Cardiac: High Cholesterol, Hypertension Neurological: Neuropathy Gastrointestinal: Gastroesophageal Reflux Endocrine: Diabetes, Insulin dep Psychosocial: Bipolar History of Blood Disorders: No Family History Patient reports no known family medical history. Review of Systems Constitutional: No chills, No dizziness, No fever Respiratory: No cough, No dyspnea on exertion, No phlegm, No short of breath Cardiovascular: No chest pain, No palpitations, No syncope Gastrointestinal: No abdominal pain; constipation (acute 3-4 days ); No diarrhea, No nausea, No vomiting Genitourinary: dysuria, frequency Physical Exam Physical Exam Vital Signs Vital Signs - First Documented 04/07/20 04/07/20 13:51 15:44 Temp 36.8 Pulse 141 Resp 15 B/P (MAP) 110/89 (96) Pulse Ox 100 O2 Delivery Room Air O2 Flow Rate 4.00 Capillary Refill : Less Than 3 SecondsLess Than 3 Seconds Height, Weight, BMI Height: '" Weight: lbs. oz. kg; 27.22 BMI Method: General Appearance: No Apparent Distress, WD/WN Eyes: Bilateral Eye Normal Inspection, Bilateral Eye PERRL, Bilateral Eye EOMI HEENT: PERRL/EOMI, Normal ENT Inspection Neck: Full Range of Motion, Non Tender Respiratory: No Accessory Muscle Use, No Respiratory Distress, Crackles, Decreased Breath Sounds Cardiovascular: No JVD, No Murmur, Normal Peripheral Pulses, Irregularly Irregular Gastrointestinal: Normal Bowel Sounds, Non Tender, Soft Rectal: Deferred Extremity: Pedal Edema, Other (Large blister on sole of R foot, lesion between 4th and 5th digit of L foot. ) Neurologic/Psychiatric: Alert, Oriented x3, Normal Mood/Affect, physician practice market manager II-XII Norm as Tested, Sensory Deficit (sensory neuropathy in b/l feet ) Skin: Normal Color, Warm/Dry Results Results/Procedures Labs Laboratory Tests 04/07/20 13:52 04/07/20 17:27 04/07/20 19:45 04/08/20 05:20 Patient resulted labs reviewed. Assessment/Plan Admission Diagnosis DKA Admission Status: Inpatient Order (span 2 midnights) Reason for Inpatient Admission: altered AMS, DKA Assessment and Plan Altered AMS 2/2 to DKA and dehydration DKA Likely 2/2 non-compliance and improper medication use Vs infectious etiology. Blood glucose 120 today, and anion gap closed to 11. d/c insulin drip. Start Determir SSI Continue KCl via IV Pulmonology following, appreciate recommendations. 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 Consult psychiatric social worker to follow up about pts home life conditions. Unlikely Pneumonia 04/08 CXR showed possible infiltrate and effusion in LL base. Procalcitonin today 0.08 Order CXR tomorrow. Afib Cardiology following appreciate recommendations Diltiazem drip d/c. Started on PO meds. HR controlled. DAVID Elevated BUN/creatinine yesterday, likely 2/2 dehydration causing prerenal DAVID. Creatinine returned to baseline today, resolved. Continue IV fluid rehydration. Peripheral Neuropathy Pt has several lesions on both feet that require care. Wound care consulted, appreciate recommendations. Acute Constipation 3-4 day hx without BM, per pt this is abnormal Start bowel regiment. HTN Restart home regiment. Hypercholesterolemia Restart home regiment. COPD Restart home regiment. DVT Prophylaxis Pt on Xarelto and Lovenox. CHADS-VASc score: 5/9, pt high risk for embolization. Clinical Quality Measures DVT/VTE Risk/Contraindication: Risk Factor Score Per Nursin RFS Level Per Nursing on Admit: 4+=Very High GONZALES ZAVALA MD 04/08/20 1503: History of Present Illness Time Seen by a Provider: 09:25 Past Clrotsz-Mphqdg-Sherde Hx Past Med/Social Hx: Reviewed Nursing Past Med/Soc Hx Family History Patient reports no known family medical history. Results Results/Procedures Imaging: Reviewed Imaging Report Assessment/Plan Admission Diagnosis Reason for Inpatient Admission: DKA requiring IV insulin AFib RVR requiring IV antiarrhythmics Assessment and Plan Cristina Roberts was admitted with poorly controlled diabetes and diabeteic ketoacidosis. We are treating her with IV insulin and she is being transitioned off the drip to subcutaneous insulin. She is also being treated for AFib with RVR by IV Cardizem and is being transitioned to oral medications. Pulmonology and Cardiology are assisting with her care. She will transfer to the floor if able to be maintained off IV insulin and Cardizem. Diagnosis/Problems Diagnosis/Problems (1) DKA (diabetic ketoacidoses) Status: Acute Qualifiers: Diabetes mellitus type: type 1 Diabetes mellitus complication detail: without coma Qualified Codes: E10.10 - Type 1 diabetes mellitus with ketoacidosis without coma (2) Poorly controlled diabetes mellitus Status: Acute (3) Diabetic foot ulcer Status: Acute (4) Atrial fibrillation with RVR Status: Acute (5) DAVID (acute kidney injury) Status: Acute (6) PNA (pneumonia) Status: Acute Supervisory-Addendum Brief Verification & Attestation Participated in pt care: history, MDM, physical Personally performed: exam, history, MDM, supervision of care Care discussed with: Medical Student Procedures: n/a Results interpretation: Verified all documentation Verification and Attestation of Medical Student E/M Service A medical student performed and documented this service in my presence. I reviewed and verified all information documented by the medical student and made modifications to such information, when appropriate. I personally performed the physical exam and medical decision making. Gonzales Zavala, Apr 08, 2020,15:03 EMANI LEHMAN MED STUDENT Apr 08, 2020 11:44 GONZALES ZAVALA MD Apr 08, 2020 15:03
--- NOTE | 2020-04-08 12:09 | Physician Query Clarification ---
PQ-Further Specificity Admission/Discharge Admission Date: Apr 07, 2020 at 16:24 Discharge Date: Dr. Zavala, The medical record reflects the following clinical scenario: History/Risk Factors: Diabetic Ketoacidosis with high anion gap metabolic acidosis. Insulin dependence Clinical Findings: Glucometer 04/07 578 Treatment:Insulin drip. Question: Can you further specify Type of Diabetes Mellitus per the clinical indicators above? Please document a response in the Progress Notes or Discharge Summary. 1. Diabetes Type 1. 2. Diabetes Type 2. 3. Other, with explanation of the clinical findings. 4. Clinically undetermined, no explanation for the clinical findings. PHYSICIAN RESPONSE Can you specify per above: 2 Please remember a lack of response to the above will prompt a phone page by CDI/Coding staff. In responding to this query, please exercise your independent professional judgment. The purpose of this communication is to more accurately reflect the complexity of your patients condition. The fact that a question is asked does not imply that any particular answer is desired or expected. Thank you for your timely response to this clarification. Requestors name: Usha Kong [facility] THIS PHYSICIAN QUERY FORM IS A PERMANENT PART OF THE MEDICAL RECORD USHA KONG Apr 08, 2020 12:09 GONZALES ZAVALA MD Apr 09, 2020 17:53
[2020-04-08] MEDS ORDERED: ONDANSETRON 4 MG/2 ML (SDV) Z0FRAN IVP PRN (12:30)
[2020-04-08] MEDS ORDERED: HYDR-3820 PO (14:14)
[2020-04-08] MEDS ORDERED: INSU100V5 SC (14:14)
[2020-04-08] MEDS ORDERED: RIVA2.5T5 PO (14:14)
[2020-04-08] MEDS ORDERED: QUET150T3 PO (14:14)
[2020-04-08] MEDS ORDERED: METO50TA15 PO (14:14)
[2020-04-08] MEDS ORDERED: INSU100V16 SC (14:14)
[2020-04-08] MEDS ORDERED: METO-333 PO (14:14)
[2020-04-08] MEDS ORDERED: FURO40TA4 PO (14:14)
[2020-04-08] MEDS ORDERED: FLUT1DIS27 INH (14:14)
[2020-04-08] MEDS ORDERED: DILT120T3 PO (14:14)
[2020-04-08] MEDS ORDERED: GBPN600T PO (14:14)
[2020-04-08] MEDS ORDERED: QUET300T71 PO (14:14)
[2020-04-08] MEDS ORDERED: TIZA2TAB7 PO (14:14)
[2020-04-08] MEDS ORDERED: IPRA4AER INH (14:14)
[2020-04-08] MEDS ORDERED: LORA-405 PO (14:14)
[2020-04-08] MEDS ORDERED: POTA10TA PO (14:14)
[2020-04-08] MEDS ORDERED: ASPI-808 PO (14:16)
--- NOTE | 2020-04-08 14:49 | NUR ---
SPOKE WITH THE PT, WENT THRU THE EXT MED HISTORY, GOT A MEDICATION LIST FROM [facility] AND [facility] AND CALLED ARMINDA TO COMPLETE THE MED REC THE PT WENT TO [facility] ON 03-15-2020 AND THEN WAS SEEN BY DR. SAMUELS ON 04-02-2020. WHEN I ASKED HER ABOUT HER MEDICATIONS SHE HAD A HARD TIME REMEMBERING HOW SHE TAKES THEM- WITH THE EXCEPTION OF THE FOLLOWING MEDICATIONS: TIZANIDINE 2MG- DIRECTIONS ARE 1 TAB BID HOWEVER PT SAYS SHE TAKES 1 TAB TID LORAZEPAM 1MG- DIRECTIONS ARE 1 TAB TID HOWEVER PT SAYS SHE TAKES 2 TABS TID ACCORDING TO THE PT SHE TAKES SEROQUEL ER 300MG HS AND 150MG ER DAILY, I WAS TOLD FROM [facility] LOCALLY THAT SHE HAD USED A [facility] IN [facility] RECENTLY. I CALLED THEM AND THEY HAD FILLED SEROQUEL 300MG AND SEROQUEL 50MG IN DECEMBER 2019 AND THEY WERE BOTH FOR PLAIN SEROQUEL AND NOT THE ER. WHEN PT WAS SEEN AT [facility] SHE WAS PRESCRIBED ELIQUIS 5MG BID AND METOPROLOL TART 25MG BID THEN WHEN SHE WAS SEEN BY [facility] SHE WAS PRESCRIBED XARELTO 2.5MG BID (PT SAYS SHE JUST TAKES 1 TAB DAILY) AND METOPROLOL TART 50MG BID (PT SAYS SHE JUST TAKES 1 TAB DAILY). I ASKED THE PT IF SHE IS TAKING ALL THE ABOVE MEDICATION AND SHE LET ME KNOW THAT SHE IS ONLY TAKING THE BLOOD THINNER AND METOPROLOL THEN DR. SAMUELS PRESCRIBED. THE PT WAS SEEN AT [facility] LAST MONTH AND THEY HAD A MED LIST SCANNED IN- THE MED LIST HAS ATORVASTATIN 80MG AND PROTONIX 40MG BUT I CAN NOT FIND A PHARMACY THAT HAS FILLED EITHER ON THESE MEDS IN THE PAST YEAR- FOR THAT REASON I DID NOT INCLUDE THEM ON THE MED REC
[2020-04-08] MEDS ORDERED: cefTRIAXone FOR IV USE 1,000 MG in WATER (STERILE) FOR INJECTION 10 ML IV SCH (15:00)
[2020-04-08] MEDS: RIVAROXABAN 20 MG TABLET (XARELTO) PO SCH (16:33)
--- NOTE | 2020-04-08 17:03 | NUR ---
RD ASSESSMENT PMHx: DM; COPD; hypercholesterolemia; GERD; PT INTERACTION: Pt was awake and pleasant during nutrition assessment. Note pt has AMS, per chart review. Pt states current appetite is not good, and has been this way for 4-5d. Note PO intake <10% x1meal, per chart review. Pt states following a diabetic diet at home, and has some issues with chewing, as she has poor dentition. Pt states recent issues with nausea and vomiting. Pt states no recent issues with constipation or diarrhea, and that her last BM was "a few days ago." Note pt not currently on bowel regimen per chart review. Pt states recent 20# wt loss, but was unsure of timeframe. Note recent 15# wt loss x1mon, per chart review. Pt states current DM management as "not real good, I'm trying to keep it good." Note unable to determine recent HbA1c, per chart review. ABNORMAL NUTRITION-RELATED LAB VALUES LOW: HIGH: Cl 108; BUN 24; glu 120; TG 250; chol 209; LDL 146; HDL 39 Est. kcal needs: 4325-6509 kcal | 20-25 kcal/kg Est. Pro needs: 60-75 g Pro | 0.8-1.0 g Pro/kg PES STATEMENT: Inadequate oral intake (NI-2.1) related to loss of appetite, nausea, and vomiting, as evidenced by pt interview, and PO intake 10% x1meal. INTERVENTION: Continue with current diet order of CHO 60g/m 3snack diet. Add Glucerna (vary) to meals TID, for increased kcal intake. Provides 220 kcal and 10 g Pro per serving. Did not offer diet education on DM management, due to AMS. Will attempt to offer education when pt is more lucid. Encouraged pt to eat when able. Will continue to follow and reassess as pt needs, intake, and status change. Luis Rockwell, MS RD LD
--- NOTE | 2020-04-08 18:15 | NUR ---
PT TRANSFERRED TO 408 VIA BED W/ STAFF. REPORT GIVEN TO ALEXIS PALMA, NO QUESTIONS/CONCERNS VOICED.
[2020-04-08 19:29] VITALS: BP 125/78
--- NOTE | 2020-04-08 20:40 | NUR ---
DR. ZAVALA NOTIFIED OF PATIENT RATING PAIN 9/10 THROUGHOUT RIGHT HIP/FOOT. NEW ORDERS PUT IN BY DOCTOR.
[2020-04-08] MEDS ORDERED: MELATONIN 3 MG TABLET PO PRN (20:45)
[2020-04-08] MEDS ORDERED: BISACODYL 10 MG SUPP (DULCOLAX) PR PRN (20:45)
[2020-04-08] MEDS ORDERED: ACETAMINOPHEN 325 MG TABLET PO PRN (20:45)
[2020-04-08] MEDS ORDERED: ANTACID SUSP 30 ML UDC (MYLANTA) PO PRN (20:45)
[2020-04-08] MEDS ORDERED: ONDANSETRON 4 MG/2 ML (SDV) Z0FRAN IV PRN (20:45)
[2020-04-08] MEDS ORDERED: polyethylene glycoL POWDER 17 GM (MIRALAX) PACK PO PRN (20:45)
[2020-04-08] MEDS: SENNOSIDES 8.6 MG (SENOKOT) TAB PO SCH (21:29)
[2020-04-08] MEDS: DOCUSATE SODIUM 100 MG (COLACE) CAP PO SCH (21:29)
[2020-04-09] VITALS (9 sets, daily range): BP systolic 83–160; BP diastolic 50–85
[2020-04-09] MEDS: ONDANSETRON 4 MG (ZOFRAN) ORAL DISSOLVE TAB PO PRN ×2 (03:18→10:12)
[2020-04-09 04:18] LABS: BASOPHILS # (AUTO) 0.1 10^3/uL (0.0-0.1); BASOPHILS % (AUTO) 1 % (0-10); EOSINOPHILS # (AUTO) 0.2 10^3/uL (0.0-0.3); EOSINOPHILS % (AUTO) 2 % (0-10); HEMATOCRIT 36 % (35-52); HEMOGLOBIN 11.3 g/dL (11.5-16.0); LYMPHOCYTES # (AUTO) 2.8 10^3/uL (1.0-4.0); LYMPHOCYTES % (AUTO) 31 % (12-44); MEAN CORPUSCULAR HEMOGLOBIN 26 pg (25-34); MEAN CORPUSCULAR HGB CONC 32 g/dL (32-36); MEAN CORPUSCULAR VOLUME 82 fL (80-99); MEAN PLATELET VOLUME 11.2 fL (9.0-12.2); MONOCYTES # (AUTO) 0.7 10^3/uL (0.0-1.0); MONOCYTES % (AUTO) 8 % (0-12); NEUTROPHILS # (AUTO) 5.3 10^3/uL (1.8-7.8); NEUTROPHILS % (AUTO) 59 % (42-75); PLATELET COUNT 316 10^3/uL (130-400); WHITE BLOOD COUNT 9.1 10^3/uL (4.3-11.0)
[2020-04-09 04:31] LABS: CHLORIDE 102 MMOL/L (98-107); POTASSIUM 4.1 MMOL/L (3.6-5.0); SODIUM 138 MMOL/L (135-145)
[2020-04-09 04:33] LABS: GLUCOSE 221 MG/DL (70-105)
[2020-04-09 04:34] LABS: CARBON DIOXIDE 21 MMOL/L (21-32)
[2020-04-09 04:36] LABS: PHOSPHORUS 2.4 MG/DL (2.3-4.7)
[2020-04-09 04:37] LABS: CREATININE SERUM 0.72 MG/DL (0.60-1.30); GFR ESTIMATED > 60
[2020-04-09 04:38] LABS: BUN/CREATININE RATIO 14
[2020-04-09 04:39] LABS: MAGNESIUM 1.6 MG/DL (1.6-2.4)
[2020-04-09] MEDS: inSUlin ASPART (NovoLOG) 1 UNIT/0.01 ML (CHARGE PER UNIT) SC SCH ×6 (05:32→21:25)
[2020-04-09] MEDS: PANTOPRAZOLE 40 MG (PROTONIX) TAB PO SCH (08:38)
[2020-04-09] MEDS: DOCUSATE SODIUM 100 MG (COLACE) CAP PO SCH ×2 (08:38→20:07)
[2020-04-09] MEDS: SENNOSIDES 8.6 MG (SENOKOT) TAB PO SCH ×2 (08:38→20:06)
[2020-04-09] MEDS ORDERED: GABAPENTIN 600 MG (NEURONTIN) TAB PO SCH ×2 (10:00→13:00)
[2020-04-09] MEDS ORDERED: ASPIRIN 325 MG (5 GR) TABLET PO SCH (10:00)
[2020-04-09] MEDS ORDERED: LORazepam 1 MG (ATIVAN) TAB PO SCH ×2 (10:00→13:00)
--- NOTE | 2020-04-09 10:02 | Cardiology Progress Note ---
Subjective Date Seen by Provider: Apr 09, 2020 Time Seen by Provider: 10:00 Subjective/Events-last exam Patient is laying down in bed, feeling better. No new complaint Review of Systems General: No Chills, No Night Sweats; Fatigue, Malaise; No Appetite, No Other HEENT: No Head Aches, No Visual Changes, No Eye Pain, No Ear Pain, No Dysphasia, No Sinus Congestion, No Post Nasal Drip, No Sore Throat, No Other Pulmonary: No Dyspnea, No Cough, No Pleuritic Chest Pain, No Other Cardiovascular: No: Chest Pain, Palpitations, Orthopnea, Paroxysmal Noc. Dyspnea, Edema, Lt Headedness, Other Focused Exam Lactate Level 04/07/20 14:10: Lactic Acid Level 1.77 04/08/20 15:20: Lactic Acid Level 0.85 Objective-Cardiology Exam Last Set of Vital Signs Vital Signs 04/07/20 04/09/20 13:51 07:30 Temp 36.8 Pulse 100 Resp 19 B/P (MAP) 160/85 (110) Pulse Ox 94 O2 Delivery Room Air O2 Flow Rate 4.00 Capillary Refill : Less Than 3 SecondsLess Than 3 Seconds I&O Intake and Output 04/09/20 00:00 Intake Total 3150 ml Output Total 1640 ml Balance 1510 ml Intake Oral 1480 ml IV Total 1670 ml Output Urine Total 1640 ml # Emeses 2 General: Alert, Oriented X3, Cooperative HEENT: Atraumatic, PERRLA Neck: Supple, No JVD, No Thyromegaly Lungs: Clear to Auscultation, Normal Air Movement Heart: Normal S1, Normal S2, No Murmurs, Other (atrial fibrillation, controlled rate) Abdomen: Normal Bowel Sounds, Soft, No Tenderness, No Hepatosplenomegaly, No Masses Extremities: No Clubbing, No Cyanosis, No Edema, Normal Pulses, No Tenderness/Swelling Skin: No Rashes, No Breakdown, No Significant Lesion Neuro: Normal Gait, Normal Speech, Strength at 5/5 X4 Ext, Normal Tone, Sensation Intact Psych/Mental Status: Mental Status NL, Mood NL Results Lab Laboratory Tests 04/09/20 04:15 A/P-Cardiology Admission Diagnosis Atrial fibrillation Tachycardia Diabetic ketoacidosis Change in mental status Assessment/Plan Chronic persistent atrial fibrillation, status post episode with rapid ventricular response while in DKA, heart rate is better. She has been better controlled on diltiazem 60 mg every 6 hours, I'll change it to long-acting diltiazem 240 mg daily and evaluate tolerance and response [id number] score of 5, yearly risk of stroke without oral anticoagulation is 6.7 percent, patient is maintained on Xarelto. I will stop aspirin Status post DKA, better at this time, managed per primary care team Status post acute change in mental status with delirium, better at this time. Change in mental status, delirium, better at this time, probably secondary to DKA. Improving. Managed by primary care team Coronary artery disease, history of CABG. Start aspirin and monitor Hypertension, continue on current medication monitor blood pressure Hyperlipidemia, total cholesterol 209, LDL 146, start on Lipitor 20 mg daily and evaluate tolerance and response Clinical Quality Measures DVT/VTE Risk/Contraindication: Risk Factor Score Per Nursin RFS Level Per Nursing on Admit: 4+=Very High TREMAINE LEGGETT MD Apr 09, 2020 10:02
[2020-04-09] MEDS: GABAPENTIN 400 MG (NEURONTIN) CAP PO SCH ×3 (10:41→20:06)
[2020-04-09] MEDS ORDERED: inSUlin ASPART (NovoLOG) 1 UNIT/0.01 ML (CHARGE PER UNIT) SC SCH (12:00)
[2020-04-09] MEDS ORDERED: LORazepam 0.5 MG (ATIVAN) TABLET PO ONE (13:00)
--- NOTE | 2020-04-09 13:21 | Progress Note - Hospitalist ---
Subjective HPI/CC On Admission Date Seen by Provider: Apr 09, 2020 Time Seen by Provider: 09:20 Cathleen Roberts is a 64y/o F with PMH of IDDM, CABG with s/p, peripheral neuropathy, HTN, COPD and Bipolar disorder. Pt presented to the ED at 13:55 with altered AMS via EMS after being found unresponsive in her hotel room. EMS services found her in afib with HR in 170s. Blood glucose at ED was 811, ABG pH 7.29 and BHB 4.5. When I visited with pt this morning, she was fully alert and oriented, pt states she is feeling 'much better'. Pt tells us she was in the hospital two weeks ago for DKA in [place], and that she recently moved to the area but does not have a PCP yet. Pt states she checks are blood glucose regularly and that levels average around 200, pt states she takes her insulin regularly too, but she does confide that she was visiting her son who she hasn't seen in years who is 'not a good person' and that the visit went poorly and she 'is worried for him'. Pt denies any chest pain, palpitations, recent fever, increased cough or sputum production. Subjective/Events-last exam She is feeling nauseous. She has not vomited. She is having some neuropathic pain in her legs. She denies chest pain. She denies trouble breathing. She denies palpitations. Focused Exam Lactate Level 04/07/20 14:10: Lactic Acid Level 1.77 04/08/20 15:20: Lactic Acid Level 0.85 Objective Exam Vital Signs Vital Signs Date Time Temp Pulse Resp B/P (MAP) Pulse Ox O2 Delivery O2 Flow Rate FiO2 04/09/20 12:31 86 04/09/20 11:33 37.0 18 119/62 (81) 96 Room Air 04/07/20 13:51 4.00 Capillary Refill : Less Than 3 SecondsLess Than 3 Seconds General Appearance: No Apparent Distress, Chronically ill, Other Respiratory: Lungs Clear, Normal Breath Sounds, No Respiratory Distress Cardiovascular: No Murmur, Irregularly Irregular (regular rhythm) Gastrointestinal: Normal Bowel Sounds, Non Tender, Soft Extremity: Normal Inspection, Non Tender, Pedal Edema Neurologic/Psychiatric: Alert, Oriented x3, Normal Mood/Affect Skin: Normal Color, Warm/Dry, Other (bilateal foot wounds) Results/Procedures Lab Laboratory Tests 04/09/20 04:15 Patient resulted labs reviewed. Imaging: Reviewed Imaging Report Assessment/Plan Assessment and Plan Assess & Plan/Chief Complaint Type 2 diabetes mellitus with ketoacidosis Poorly controlled diabetes mellitus Diabetic foot wounds Diabetic neuropathy A1C 12.4% Blood sugars remain elevated Increase Levemir Add mealtime Novolog SSI Wound care consulted Continue Gabapentin director of student services consulted, appreciate assistance Paroxysmal atrial fibrillation Cardiology following appreciate recommendations Cardizem Xarelto Nausea Likely diabetic gastroparesis Antiemetics as needed DAVID Renal function normalized Stop IV fluids HTN Hypercholesterolemia COPD Insomnia Bipolar disorder Continue home meds DVT Prophylaxis Diagnosis/Problems Diagnosis/Problems (1) DKA (diabetic ketoacidoses) Status: Acute Qualifiers: Diabetes mellitus type: type 1 Diabetes mellitus complication detail: without coma Qualified Codes: E10.10 - Type 1 diabetes mellitus with ketoacidosis without coma (2) Poorly controlled diabetes mellitus Status: Acute (3) Diabetic foot ulcer Status: Acute (4) Atrial fibrillation with RVR Status: Acute (5) DAVID (acute kidney injury) Status: Acute Clinical Quality Measures DVT/VTE Risk/Contraindication: Risk Factor Score Per Nursin RFS Level Per Nursing on Admit: 4+=Very High GONZALES ZAVALA MD Apr 09, 2020 13:21
--- NOTE | 2020-04-09 14:14 | NUR ---
DR ZAVALA NOTIFIED THAT PATIENT HAS COMPLAINTS OF NOT FEELING WELL. SHE IS SWEATY. HAS COMPLAINTS OF NAUSEA WITHOUT VOMITING. (ZOFRAN GIVEN). PATIENT COMPLAINED THAT VISION IS GOING IN AND OUT. PATIENT IS ABLE TO TOUCH TWO FINGER TOGETHER WHEN ASKED. BLOOD PRESSURE IS RUNNING LOW. 93/61 AND 81/51. HEART IS 67-70. SHE IS STILL IN AFLIB/AFLUTTER. FINGERSTICK BLOOD SUGAR IS 222. NEW ORDERS: REGLAN 5 MG PO TID AND 500 ML BOLUS OF LR
[2020-04-09] MEDS ORDERED: METOCLOPRAMIDE 5 MG (REGLAN) TAB ONE (14:21)
[2020-04-09] MEDS ORDERED: LACTATED RINGERS 1,000 ML IV ONE ×2 (14:22→14:30)
[2020-04-09] MEDS: METOCLOPRAMIDE 5 MG (REGLAN) TAB PO SCH ×2 (14:27→20:07)
[2020-04-09] MEDS: RIVAROXABAN 20 MG TABLET (XARELTO) PO SCH (17:10)
[2020-04-09] MEDS: ADVAIR HFA 115/21 MCG INHALER 8 GM IH SCH (20:26)
[2020-04-09] MEDS ORDERED: QUEtiapine 100 MG (SEROquel) TAB IMMEDIATE RELEASE PO SCH (21:00)
[2020-04-10] VITALS (10 sets, daily range): BP systolic 104–141; BP diastolic 58–83
[2020-04-10 05:22] LABS: BASOPHILS % (AUTO) 0 % (0-10); EOSINOPHILS # (AUTO) 0.2 10^3/uL (0.0-0.3); EOSINOPHILS % (AUTO) 5 % (0-10); HEMATOCRIT 35 % (35-52); HEMOGLOBIN 11.1 g/dL (11.5-16.0); LYMPHOCYTES # (AUTO) 2.2 10^3/uL (1.0-4.0); LYMPHOCYTES % (AUTO) 42 % (12-44); MEAN CORPUSCULAR HEMOGLOBIN 26 pg (25-34); MEAN CORPUSCULAR HGB CONC 32 g/dL (32-36); MEAN CORPUSCULAR VOLUME 81 fL (80-99); MEAN PLATELET VOLUME 10.6 fL (9.0-12.2); MONOCYTES # (AUTO) 0.5 10^3/uL (0.0-1.0); MONOCYTES % (AUTO) 9 % (0-12); NEUTROPHILS # (AUTO) 2.4 10^3/uL (1.8-7.8); NEUTROPHILS % (AUTO) 45 % (42-75); PLATELET COUNT 267 10^3/uL (130-400); WHITE BLOOD COUNT 5.4 10^3/uL (4.3-11.0)
[2020-04-10 05:32] LABS: CHLORIDE 104 MMOL/L (98-107); POTASSIUM 3.7 MMOL/L (3.6-5.0); SODIUM 140 MMOL/L (135-145)
[2020-04-10 05:34] LABS: CALCIUM 8.8 MG/DL (8.5-10.1); GLUCOSE 223 MG/DL (70-105)
[2020-04-10 05:36] LABS: CARBON DIOXIDE 23 MMOL/L (21-32)
[2020-04-10 05:38] LABS: GFR ESTIMATED > 60; PHOSPHORUS 2.7 MG/DL (2.3-4.7)
[2020-04-10 05:39] LABS: BUN/CREATININE RATIO 16
[2020-04-10 05:40] LABS: MAGNESIUM 1.7 MG/DL (1.6-2.4)
[2020-04-10] MEDS: inSUlin ASPART (NovoLOG) 1 UNIT/0.01 ML (CHARGE PER UNIT) SC SCH ×7 (06:04→20:55)
[2020-04-10] MEDS: ADVAIR HFA 115/21 MCG INHALER 8 GM IH SCH ×2 (07:11→19:52)
--- NOTE | 2020-04-10 07:30 | NUR ---
PATIENT LETHARGIC, BP 122/55, PULSE 80, O2 SAT ON ROOM AIR 96 PERCENT, BLOOD SUGAR 155, LEAVITT PATENT WITH CHECO COLOR URINE, MED STUDENT HERE AND INFORMED NURSE HE WOULD TALK TO DR ZAVALA
[2020-04-10] MEDS ORDERED: ASPIRIN 325 MG (5 GR) TABLET PO SCH (09:00)
--- NOTE | 2020-04-10 09:00 | NUR ---
PATIENT AWAKE, DENIES PAIN OR SOB, SITTING UP IN BED FEEDING SELF, SUMNER BOOTS ON , OPEN BLISTER ON RIGHT HEEL
[2020-04-10] MEDS: GABAPENTIN 400 MG (NEURONTIN) CAP PO SCH ×2 (10:10→14:25)
[2020-04-10] MEDS: PANTOPRAZOLE 40 MG (PROTONIX) TAB PO SCH (10:11)
[2020-04-10] MEDS: DOCUSATE SODIUM 100 MG (COLACE) CAP PO SCH ×2 (10:11→20:54)
[2020-04-10] MEDS: METOCLOPRAMIDE 5 MG (REGLAN) TAB PO SCH ×3 (10:11→20:54)
[2020-04-10] MEDS: SENNOSIDES 8.6 MG (SENOKOT) TAB PO SCH ×2 (10:11→20:54)
--- NOTE | 2020-04-10 10:31 | Cardiology Progress Note ---
Subjective Date Seen by Provider: Apr 10, 2020 Time Seen by Provider: 10:29 Subjective/Events-last exam Patient is laying down in bed, feeling better. No new complaint Review of Systems General: No Chills, No Night Sweats, No Fatigue, No Malaise, No Appetite, No Other HEENT: No Head Aches, No Visual Changes, No Eye Pain, No Ear Pain, No Dysphasia, No Sinus Congestion, No Post Nasal Drip, No Sore Throat, No Other Pulmonary: No Dyspnea, No Cough, No Pleuritic Chest Pain, No Other Cardiovascular: No: Chest Pain, Palpitations, Orthopnea, Paroxysmal Noc. Dyspnea, Edema, Lt Headedness, Other Focused Exam Lactate Level 04/07/20 14:10: Lactic Acid Level 1.77 04/08/20 15:20: Lactic Acid Level 0.85 Objective-Cardiology Exam Last Set of Vital Signs Vital Signs 04/07/20 04/10/20 13:51 07:41 Temp 36.7 Pulse 80 Resp 20 B/P (MAP) 122/65 (84) Pulse Ox 96 O2 Delivery Room Air O2 Flow Rate 4.00 Capillary Refill : Less Than 3 SecondsLess Than 3 Seconds I&O Intake and Output 04/10/20 00:00 Intake Total 1540 ml Output Total 1875 ml Balance -335 ml Intake Oral 1040 ml IV Total 500 ml Output Urine Total 1875 ml General: Alert, Oriented X3, Cooperative HEENT: Atraumatic, PERRLA Neck: Supple, No JVD, No Thyromegaly Lungs: Clear to Auscultation, Normal Air Movement Heart: Normal S1, Normal S2, No Murmurs, Other (atrial fibrillation, controlled rate) Abdomen: Normal Bowel Sounds, Soft, No Tenderness, No Hepatosplenomegaly, No Masses Extremities: No Clubbing, No Cyanosis, No Edema, Normal Pulses, No Tenderness/Swelling Skin: No Rashes, No Breakdown, No Significant Lesion Neuro: Normal Gait, Normal Speech, Strength at 5/5 X4 Ext, Normal Tone, Sensation Intact Psych/Mental Status: Mental Status NL, Mood NL Results Lab Laboratory Tests 04/10/20 05:10 A/P-Cardiology Admission Diagnosis Atrial fibrillation Tachycardia Diabetic ketoacidosis Change in mental status Assessment/Plan Chronic persistent atrial fibrillation, heart rate is better controlled. Continue to monitor [id number] score of 5, yearly risk of stroke without oral anticoagulation is 6.7 percent, patient is maintained on Xarelto Diabetic foot ulcer, ulceration on the plantar aspect of her right foot, does not know how long she had the ulcer 4. Diminished dorsalis pedis pulse. I will evaluate MAISHA Status post DKA, better at this time, managed per primary care team Status post acute change in mental status with delirium, better at this time. Change in mental status, delirium, better at this time, probably secondary to DKA. Improving. Managed by primary care team Coronary artery disease, history of CABG. Start aspirin and monitor Hypertension, continue on current medication monitor blood pressure Hyperlipidemia, total cholesterol 209, LDL 146, particularly on Lipitor 20 mg daily. Continue to monitor Clinical Quality Measures DVT/VTE Risk/Contraindication: Risk Factor Score Per Nursin RFS Level Per Nursing on Admit: 4+=Very High TREMAINE LEGGETT MD Apr 10, 2020 10:31 am
--- NOTE | 2020-04-10 11:58 | Progress Note - Hospitalist ---
EMANI LEHMAN MED STUDENT 04/10/20 1158: Subjective HPI/CC On Admission Time Seen by Provider: 08:25 Subjective/Events-last exam Pt fully alert and oriented during visit today. Per Nurse, pt was somnolent this morning and was only responding to sternal rub, but later she advised me that she had returned to normal mental status. Pt states she 'feels about the same' as she did yesterday. Pt denies any new complaints. I talked with pt about how important her glucose control would be going forward and she stated she 're cently ran out of insulin', and that she was suppose to pick it up from the pharmacy but didn't get around to it. Pt states she hasn't passed stool since admission, and denies having any nausea since yesterday morning when I last visited her. Review of Systems General: No Chills, No Night Sweats; Fatigue Pulmonary: No Dyspnea, No Cough, No Pleuritic Chest Pain Cardiovascular: No: Chest Pain, Palpitations, Lt Headedness Gastrointestinal: Nausea, Constipation; No: Vomiting, Abdominal Pain, Diarrhea Genitourinary: No Dysuria, No Incontinence Focused Exam Lactate Level 04/07/20 14:10: Lactic Acid Level 1.77 04/08/20 15:20: Lactic Acid Level 0.85 Objective Exam Vital Signs Vital Signs Date Time Temp Pulse Resp B/P (MAP) Pulse Ox O2 Delivery O2 Flow Rate FiO2 04/10/20 11:34 36.5 54 16 116/58 (77) 98 Room Air 04/07/20 13:51 4.00 Capillary Refill : Less Than 3 SecondsLess Than 3 Seconds General Appearance: No Apparent Distress, WD/WN HEENT: PERRL/EOMI, Normal ENT Inspection Neck: Full Range of Motion, Normal Inspection Respiratory: Lungs Clear, Normal Breath Sounds, No Accessory Muscle Use, No Respiratory Distress Cardiovascular: Regular Rate, Rhythm, No Gallop, No JVD, No Murmur, Normal Peripheral Pulses Gastrointestinal: Normal Bowel Sounds, Non Tender, Soft Rectal: Deferred Extremity: Normal Capillary Refill, Other (several lesions and blisters around feet. ) Neurologic/Psychiatric: Alert, Oriented x3, Normal Mood/Affect, mold builder II-XII Norm as Tested Results/Procedures Lab Laboratory Tests 04/10/20 05:10 Patient resulted labs reviewed. Imaging: Reviewed Imaging Report Assessment/Plan Assessment and Plan Assess & Plan/Chief Complaint T2DM Poorly controlled, pt struggles with insulin regiment compliance. 14 units of SSI given yesterday. Basal and post-prandial insulin increased today. Gastroparesis Pt denies being diagnosed with this prior. Likely contributes to pts nausea Start metoclopramide. Somnolence Likely 2/2 Quetiapine which was started yesterday Dose reduced from 300mg to 150mg. Peripheral Neuropathy Gabapentin started yesterday. Bipolar Disorder Quetiapine started yesterday. Acute Constipation 5 day hx without BM, per pt this is abnormal Consider bowel regiment. Afib HTN Hypercholesterolemia COPD Continue home regimen. DVT Prophylaxis Pt on Xarelto and Lovenox. Prerenal DAVID, resolved. DKA, resolved. Clinical Quality Measures DVT/VTE Risk/Contraindication: Risk Factor Score Per Nursin RFS Level Per Nursing on Admit: 4+=Very High GONZALES ZAVALA MD 04/10/20 1326: Subjective HPI/CC On Admission Date Seen by Provider: Apr 10, 2020 Time Seen by Provider: 10:20 Assessment/Plan Assessment and Plan Assess & Plan/Chief Complaint Cristina Roberts was admitted in DKA. Her DKA is now resolved. We are adjusting her insulin regimen. She had issues with AFib with RVR and Cardiology is assisting with her care. Diagnosis/Problems Diagnosis/Problems (1) T2DM (type 2 diabetes mellitus) Status: Acute Qualifiers: Qualified Codes: E11.11 - Type 2 diabetes mellitus with ketoacidosis with coma; Z79.4 - half-way (current) use of insulin (2) Poorly controlled diabetes mellitus Status: Acute (3) Atrial fibrillation with RVR Status: Acute (4) DAVID (acute kidney injury) Status: Resolved Resolution Date/Time: 04/10/20 @ 13:25 (5) Diabetic foot ulcer Status: Acute Supervisory-Addendum Brief Verification & Attestation Participated in pt care: history, MDM, physical Personally performed: exam, history, MDM, supervision of care Care discussed with: Medical Student Procedures: n/a Results interpretation: Verified all documentation Verification and Attestation of Medical Student E/M Service A medical student performed and documented this service in my presence. I r eviewed and verified all information documented by the medical student and made modifications to such information, when appropriate. I personally performed the physical exam and medical decision making. Gonzales Zavala, Apr 10, 2020,13:26 EMANI LEHMAN MED STUDENT Apr 10, 2020 11:58 GONZALES ZAVALA MD Apr 10, 2020 13:26
--- NOTE | 2020-04-10 13:45 | NUR ---
PATIENT LETHARGIC, DIAPHORETIC, BP 118/59, PULSE 90, O2 SAT 94 PERCENT , BLOOD SUGAR 280, DR ZAVALA NOTIFIED AND ORDERS GIVEN TO HOLD SEROQUEL, ZANAFLEX AND NEURONTIN
--- NOTE | 2020-04-10 17:00 | NUR ---
patient awake, and carrying on conversation with nurse,voices no complaints
[2020-04-10] MEDS: RIVAROXABAN 20 MG TABLET (XARELTO) PO SCH (17:29)
--- NOTE | 2020-04-10 19:19 | Wound Care Assessment ---
Wound Care Assessment Date Seen by Provider: Apr 10, 2020 Time Seen by Provider: 18:30 Chief Complaint bilateral foot wounds. HPI The patient is a 64 year old female admitted with altered mental status and DKA, with bilateral DFU's. There are ulcers on the R plantar foot, R heel, and L 4th web space. Dressing orders are written. Will follow the patient in hospital. Smoking Status: Unknown if Ever Smoked Recreational Drug Use: No Alcohol Use: Denies Use Exam Vital Signs Date Time Temp Pulse Resp B/P (MAP) Pulse Ox O2 Delivery O2 Flow Rate FiO2 04/10/20 16:00 36.5 86 18 104/60 (75) 97 Room Air 04/07/20 13:51 4.00 Capillary Refill : Less Than 3 SecondsLess Than 3 Seconds Results Laboratory Tests 04/09/20 21:05: Glucometer 179H 04/10/20 05:10: White Blood Count 5.4, Red Blood Count 4.34, Hemoglobin 11.1L, Hematocrit 35, Mean Corpuscular Volume 81, Mean Corpuscular Hemoglobin 26, Mean Corpuscular Hemoglobin Concent 32, Red Cell Distribution Width 13.9, Platelet Count 267, Faye n Platelet Volume 10.6, Immature Granulocyte % (Auto) 0, Neutrophils (%) (Auto) 45, Lymphocytes (%) (Auto) 42, Monocytes (%) (Auto) 9, Eosinophils (%) (Auto) 5, Basophils (%) (Auto) 0, Neutrophils # (Auto) 2.4, Lymphocytes # (Auto) 2.2, Monocytes # (Auto) 0.5, Eosinophils # (Auto) 0.2, Basophils # (Auto) 0.0, Immature Granulocyte # (Auto) 0.0, Sodium Level 140, Potassium Level 3.7, Chloride Level 104, Carbon Dioxide Level 23, Anion Gap 13, Blood Urea Nitrogen 11, Creatinine 0.70, Estimat Glomerular Filtration Rate > 60, BUN/Creatinine Ratio 16, Glucose Level 223H, Calcium Level 8.8, Phosphorus Level 2.7, Magnesium Level 1.7 04/10/20 05:57: Glucometer 209H 04/10/20 07:27: Glucometer 155H 04/10/20 10:50: Glucometer 228H 04/10/20 13:24: Glucometer 280H 04/10/20 15:57: Glucometer 218H Microbiology 04/08/20 Blood Culture - Preliminary, Resulted No growth 04/07/20 MRSA Screen - Final, Complete MRSA not isolated EMMA MERCADO MD Apr 10, 2020 19:19
[2020-04-10] MEDS: MICONAZOLE 2% POWDER (DESENEX AF) 90 GM TOP SCH (22:43)
[2020-04-11 03:52] VITALS: BP 113/61
[2020-04-11 05:17] LABS: BASOPHILS % (AUTO) 0 % (0-10); EOSINOPHILS # (AUTO) 0.2 10^3/uL (0.0-0.3); EOSINOPHILS % (AUTO) 2 % (0-10); HEMATOCRIT 35 % (35-52); HEMOGLOBIN 11.2 g/dL (11.5-16.0); LYMPHOCYTES # (AUTO) 2.7 10^3/uL (1.0-4.0); LYMPHOCYTES % (AUTO) 34 % (12-44); MEAN CORPUSCULAR HEMOGLOBIN 26 pg (25-34); MEAN CORPUSCULAR HGB CONC 32 g/dL (32-36); MEAN CORPUSCULAR VOLUME 80 fL (80-99); MEAN PLATELET VOLUME 11.1 fL (9.0-12.2); MONOCYTES # (AUTO) 0.6 10^3/uL (0.0-1.0); MONOCYTES % (AUTO) 8 % (0-12); NEUTROPHILS # (AUTO) 4.3 10^3/uL (1.8-7.8); NEUTROPHILS % (AUTO) 55 % (42-75); PLATELET COUNT 289 10^3/uL (130-400); WHITE BLOOD COUNT 7.8 10^3/uL (4.3-11.0)
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
[2020-04-11 05:30] LABS: CHLORIDE 100 MMOL/L (98-107); SODIUM 135 MMOL/L (135-145)
[2020-04-11 05:31] LABS: CALCIUM 8.8 MG/DL (8.5-10.1)
[2020-04-11 05:32] LABS: GLUCOSE 281 MG/DL (70-105)
[2020-04-11 05:33] LABS: CARBON DIOXIDE 23 MMOL/L (21-32)
[2020-04-11 05:35] LABS: PHOSPHORUS 2.6 MG/DL (2.3-4.7)
[2020-04-11 05:36] LABS: CREATININE SERUM 0.73 MG/DL (0.60-1.30); GFR ESTIMATED > 60
[2020-04-11 05:37] LABS: BUN/CREATININE RATIO 15
[2020-04-11 05:38] LABS: MAGNESIUM 1.6 MG/DL (1.6-2.4)
[2020-04-11] MEDS: inSUlin ASPART (NovoLOG) 1 UNIT/0.01 ML (CHARGE PER UNIT) SC SCH ×3 (07:23→12:34)
[2020-04-11] MEDS: METOCLOPRAMIDE 5 MG (REGLAN) TAB PO SCH ×2 (08:05→12:33)
[2020-04-11] MEDS: DOCUSATE SODIUM 100 MG (COLACE) CAP PO SCH (08:06)
[2020-04-11] MEDS: PANTOPRAZOLE 40 MG (PROTONIX) TAB PO SCH (08:06)
[2020-04-11] MEDS: SENNOSIDES 8.6 MG (SENOKOT) TAB PO SCH (08:07)
[2020-04-11 08:34] VITALS: BP 119/52
[2020-04-11] MEDS: ADVAIR HFA 115/21 MCG INHALER 8 GM IH SCH ×2 (09:39→10:45)
[2020-04-11] MEDS: MICONAZOLE 2% POWDER (DESENEX AF) 90 GM TOP SCH (09:39)
--- NOTE | 2020-04-11 10:08 | Cardiology Progress Note ---
Subjective Date Seen by Provider: Apr 11, 2020 Time Seen by Provider: 10:06 Subjective/Events-last exam Patient was seen at bedside laying down comfortably, denied any chest pain, having mild nausea Review of Systems General: No Chills, No Night Sweats; Fatigue, Malaise; No Appetite, No Other HEENT: No Head Aches, No Visual Changes, No Eye Pain, No Ear Pain, No Dysp hasia, No Sinus Congestion, No Post Nasal Drip, No Sore Throat, No Other Pulmonary: No Dyspnea, No Cough, No Pleuritic Chest Pain, No Other Cardiovascular: No: Chest Pain, Palpitations, Orthopnea, Paroxysmal Noc. Dyspnea, Edema, Lt Headedness, Other Focused Exam Lactate Level 04/08/20 15:20: Lactic Acid Level 0.85 Objective-Cardiology Exam Last Set of Vital Signs Vital Signs 04/07/20 04/11/20 13:51 08:34 Temp 36.2 Pulse 86 Resp 20 B/P (MAP) 119/52 (74) Pulse Ox 99 O2 Delivery Room Air O2 Flow Rate 4.00 Capillary Refill : Less Than 3 SecondsLess Than 3 Seconds I&O Intake and Output 04/11/20 00:00 Intake Total 3160 ml Output Total 2220 ml Balance 940 ml Intake Oral 3160 ml Output Urine Total 2220 ml General: Alert, Oriented X3, Cooperative HEENT: Atraumatic, PERRLA Neck: Supple, No JVD, No Thyromegaly Lungs: Clear to Auscultation, Normal Air Movement Heart: Normal S1, Normal S2, No Murmurs, Other (atrial fibrillation, controlled rate) Abdomen: Normal Bowel Sounds, Soft, No Tenderness, No Hepatosplenomegaly, No Masses Extremities: No Clubbing, No Cyanosis, No Edema, Normal Pulses, No Tenderness/Swelling Skin: No Rashes, No Breakdown, Other (Serratia on the feet) Neuro: Normal Gait, Normal Speech, Strength at 5/5 X4 Ext, Normal Tone, Sensation Intact Psych/Mental Status: Mental Status NL, Mood NL Results Lab Laboratory Tests 04/11/20 05:04 A/P-Cardiology Admission Diagnosis Atrial fibrillation Tachycardia Diabetic ketoacidosis Change in mental status Assessment/Plan Chronic persistent atrial fibrillation, heart rate is better controlled. Continue to monitor [id number] score of 5, yearly risk of stroke without oral anticoagulation is 6.7 percent, patient is maintained on Xarelto Diabetic foot ulcer, had ulcer on the right leg on the plantar aspect and the heel, on the left leg on the fourth space, Diminished dorsalis pedis pulse. Seen and evaluated with Dr. Villafuerte. I will evaluate MAISHA Status post DKA, better at this time, managed per primary care team Status post acute change in mental status with delirium, better at this time. Change in mental status, delirium, better at this time, probably secondary to DKA. Improving. Managed by primary care team Coronary artery disease, history of CABG. continue on aspirin Hypertension, continue on current medication monitor blood pressure Hyperlipidemia, total cholesterol 209, LDL 146, maintained on Lipitor 20 mg daily. Continue to monitor Clinical Quality Measures DVT/VTE Risk/Contraindication: Risk Factor Score Per Nursin RFS Level Per Nursing on Admit: 4+=Very High TREMAINE LEGGETT MD Apr 11, 2020 10:08
--- NOTE | 2020-04-11 11:24 | Progress Note - Hospitalist ---
Subjective HPI/CC On Admission Time Seen by Provider: 09:00 Subjective/Events-last exam Pt states she feels 'about the same' as yesterday. Pt has no new cc at this time. Pt was mainly just distressed about her living situation, social work professor consulted. Pt has an episode of somnolence and diaphoresis yesterday so quetiapine and gabapentin was held. Pt denies any such episode since then. Pt denies any abd pain, chest pain or palpitations. VS stable. Review of Systems General: No Chills, No Night Sweats Pulmonary: No Dyspnea, No Cough, No Pleuritic Chest Pain Cardiovascular: Lt Headedness; No: Chest Pain, Palpitations Gastrointestinal: Nausea, Constipation; No: Vomiting, Abdominal Pain, Diarrhea Genitourinary: No Dysuria, No Incontinence Focused Exam Lactate Level 04/08/20 15:20: Lactic Acid Level 0.85 Objective Exam Vital Signs Vital Signs Date Time Temp Pulse Resp B/P (MAP) Pulse Ox O2 Delivery O2 Flow Rate FiO2 04/11/20 12:21 98 04/11/20 12:00 36.2 20 145/82 (103) 98 Room Air 04/07/20 13:51 4.00 Capillary Refill : Less Than 3 SecondsLess Than 3 Seconds General Appearance: No Apparent Distress, Chronically ill HEENT: PERRL/EOMI, Normal ENT Inspection Neck: Full Range of Motion, Normal Inspection Respiratory: Lungs Clear, Normal Breath Sounds, No Accessory Muscle Use, No Respiratory Distress Cardiovascular: No JVD, No Murmur, Irregularly Irregular Gastrointestinal: No Organomegaly, No Pulsatile Mass, Non Tender, Soft Rectal: Deferred Extremity: No Calf Tenderness, Other (ulcers on both feet, seen by Dr Villafuerte for wound care. 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 Imaging: Reviewed Imaging Report Assessment/Plan Assessment and Plan Assess & Plan/Chief Complaint T2DM Pt stable from a medical standpoint, social work professor planning discharge. Poorly controlled, pt struggles with insulin regiment compliance. 27 units of SSI given yesterday. Basal and post-prandial insulin increased today. Afib HR stable, within normal range Cardiology consulting, appreciate recommendations. Gastroparesis Pt denies being diagnosed with this prior. Likely contributes to pts nausea Continue metoclopramide. Somnolence Likely 2/2 Quetiapine, pt as a on-off two day hx of somnolence. Quetiapine and Gabapentin held. Peripheral Neuropathy Gabapentin held yesterday. Dr. Villafuerte seeing pt for wound care, appreciate assistance. Bipolar Disorder Quetiapine held yesterday. Acute Constipation 6 day hx without BM, per pt this is abnormal Continue bowel regiment. Afib HTN Hypercholesterolemia COPD Continue home regimen. DVT Prophylaxis Pt on Xarelto and Lovenox. Prerenal DAVID, resolved. DKA, resolved. Clinical Quality Measures DVT/VTE Risk/Contraindication: Risk Factor Score Per Nursin RFS Level Per Nursing on Admit: 4+=Very High EMANI LEHMAN MED STUDENT Apr 11, 2020 11:23
[2020-04-11 12:00] VITALS: BP 145/82
[2020-04-11] MEDS ORDERED: inSUlin ASPART (NovoLOG) 1 UNIT/0.01 ML (CHARGE PER UNIT) SC SCH (12:00)
[2020-04-11] MEDS ORDERED: RIVA20TA2 PO (12:43)
[2020-04-11] MEDS ORDERED: GABA-490 PO (12:43)
[2020-04-11] MEDS ORDERED: ATOR20TA66 PO (12:43)
[2020-04-11] MEDS ORDERED: MTP25TSR PO (12:43)
[2020-04-11] MEDS ORDERED: METO5TAB2 PO (12:43)
--- NOTE | 2020-04-11 12:49 | Discharge Inst-Simple/Standard ---
Discharge Inst-Standard Discharge Medications New, Converted or Re-Newed RX: Transmitted to Pharmacy Patient Instructions/Follow Up Plan of Care/Instructions/FU: Please continue to take your medications as written. Please follow up with your primary care doctor to follow up this hospital stay. Activity as Tolerated: Yes Discharge Diet: ADA Diet Return to The Hospital For: Chest pain, shortness of breath, very elevated blood sugars, abdominal pain, nausea, if you feel you are getting worse. VANESA MORRISSEY MD Apr 11, 2020 12:48
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
--- NOTE | 2020-04-11 14:28 | Discharge Summary ---
Diagnosis/Chief Complaint Date of Admission Apr 07, 2020 at 16:24 Date of Discharge Discharge Date: Apr 11, 2020 Admission Diagnosis Primary Care No,Local Physician Discharge Diagnosis (1) T2DM (type 2 diabetes mellitus) Status: Acute (2) Poorly controlled diabetes mellitus Status: Acute (3) Atrial fibrillation with RVR Status: Acute (4) DAVID (acute kidney injury) Status: Resolved (5) Diabetic foot ulcer Status: Acute Discharge Summary Procedures/Consulations Dr Radu Degroot, Pulmonology Dr. Lana Avilez, Cardiology Dr. Vinnie Villafuerte, Wound Care Discharge Physical Exam Allergies: Coded Allergies: No Known Drug Allergies (Unverified , 03/10/20) Vitals & I&Os Vital Signs Date Time Temp Pulse Resp B/P (MAP) Pulse Ox O2 Delivery O2 Flow Rate FiO2 04/11/20 12:21 98 04/11/20 12:00 36.2 20 145/82 (103) 98 Room Air 04/07/20 13:51 4.00 General Appearance: No Apparent Distress, Chronically ill HEENT: PERRL/EOMI, Normal ENT Inspection Respiratory: Chest Non Tender, Lungs Clear, Normal Breath Sounds, No Accessory Muscle Use, No Respiratory Distress Cardiovascular: No JVD, No Murmur, Normal Peripheral Pulses, Irregularly Irr egular Gastrointestinal: Normal Bowel Sounds, No Organomegaly, Non Tender, Soft Extremity: Normal Capillary Refill, Normal Range of Motion, Non Tender, No Calf Tenderness Skin: Normal Color, Warm/Dry, Other (Diabetic foot ulcers ) Neurologic/Psychiatric: Alert, Oriented x3, Normal Mood/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, 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 Norm as Tested, Sensory Deficit (due to peripheral neuropathy ) Hospital Course Labs (last 24 hrs) Laboratory Tests 04/10/20 15:57: Glucometer 218H 04/10/20 20:25: Glucometer 270H 04/11/20 05:04: White Blood Count 7.8, Red Blood Count 4.34, Hemoglobin 11.2L, Hematocrit 35, Mean Corpuscular Volume 80, Mean Corpuscular Hemoglobin 26, Mean Corpuscular Hemoglobin Concent 32, Red Cell Distribution Width 13.7, Platelet Count 289, Mean Platelet Volume 11.1, Immature Granulocyte % (Auto) 0, Neutrophils (%) (Auto) 55, Lymphocytes (%) (Auto) 34, Monocytes (%) (Auto) 8, Eosinophils (%) (Auto) 2, Basophils (%) (Auto) 0, Neutrophils # (Auto) 4.3, Lymphocytes # (Auto) 2.7, Monocytes # (Auto) 0.6, Eosinophils # (Auto) 0.2, Basophils # (Auto) 0.0, Immature Granulocyte # (Auto) 0.0, Sodium Level 135, Potassium Level 4.0, Chloride Level 100, Carbon Dioxide Level 23, Anion Gap 12, Blood Urea Nitrogen 11, Creatinine 0.73, Estimat Glomerular Filtration Rate > 60, BUN/Creatinine Ratio 15, Glucose Level 281H, Calcium Level 8.8, Phosphorus Level 2.6, Magnesium Level 1.6 04/11/20 11:12: Glucometer 203H Microbiology 04/08/20 Blood Culture - Preliminary, Resulted No growth 04/07/20 MRSA Screen - Final, Complete MRSA not isolated Patient resulted labs reviewed. Pending Labs Laboratory Tests 04/11/20 11:12: Glucometer 203 Imaging: Reviewed Imaging Report Discussion & Recommendations Cristina Roberts is a 64y/o female who presented to the ED on Apr 07 after being found in her motel room with AMS. Workup showed DKA and afib with RVR. The pt was admitted to the ICU where a insulin drip and a Cardizem drip was started. Cardiology was consulted to manage the pts afib, heart rate was controlled, and pt was put back on home regimen to maintain condition. Pts anion gap corrected and beta-hydroxybutyrate decreased to normal range so insulin drip was discontinued and pt was started on basal-bolus insulin regiment. From 04/09 to 04/11 the pts insulin regiment was cautiously increased to better maintain glucose control in the pt. DVT prophylaxis was maintained with Xarelto. Pt presented with diabetic foot ulcers. Wound care was managed by Dr Villafuerte. Pt had on and off nausea with abdominal fullness and was clinically diagnosed with gastroparesis, metoclopramide was started. Additionally, the patients chronic conditions were managed including T2DM, Bipolar disorder, COPD, HTN, hypercholesterolemia and peripheral neuropathy. This presented a challenge because the patient was a poor historian and was unsure what medications she was on and at what dose. Today the patient is fully alert and oriented without any complaints. director of cardiopulmonary services was [facility] [place] [place] Discharge Home Medications: Active Scripts Active Metoclopramide HCl 5 Mg Tablet 5 Mg PO TID Gabapentin 400 Mg Capsule 400 Mg PO TID Xarelto Tablet (Rivaroxaban) 20 Mg Tablet 20 Mg PO DAILY@1700 Atorvastatin Calcium 20 Mg Tablet 20 Mg PO HS Metoprolol Succinate 25 Mg Tab.er.24h 25 Mg PO DAILY Reported Combivent Respimat Inhal [place] (Albuterol/Ipratropium) 4 Gm Aero 1 Puff INH Q6H Levemir (Insulin Determir) 1,000 Units/10 Ml Soln 35 Units SC BID Novolog (Insulin Aspart) 100 Unit/1 Ml Susp 5 Units SC TIDAC Diltiazem HCl 120 Mg Tablet 240 Mg PO DAILY TAKES 2 (120MG) TABS Advair 500-50 Diskus (Fluticasone/Salmeterol) 1 Each Blst.w.dev 1 Puff INH BID Tizanidine HCl 2 Mg Tablet 2 Mg PO TID Ativan (Lorazepam) 1 Mg Tablet 2 Mg PO TID Quetiapine Fumarate ER (Quetiapine Fumarate) 300 Mg Tab.er.24h 300 Mg PO HS Hydrocodone-Acetamin 10-325 mg (Hydrocodone/Acetaminophen) 1 Each Tablet 1 Ea PO BID PRN Instructions to patient/family Please see electronic discharge instructions given to patient. Clinical Quality Measures DVT/VTE Risk/Contraindication: Risk Factor Score Per Nursin RFS Level Per Nursing on Admit: 4+=Very High Problem Qualifiers (1) T2DM (type 2 diabetes mellitus): Diabetes mellitus intermediate project manager insulin use: with fpc use Diabetes mellitus complication detail: with EMANI Rider MED STUDENT Apr 11, 2020 14:28
== END 2020-04-11 14:45 | disposition home or self-care (01) | DRG 638 ==
LOC: EDUNIT# 13:51 → ER FS 13:52 → ICU 16:24 → 4TH 04-08 18:15
PROVIDERS: ADMIT Internal Medicine; ATTEND Internal Medicine
DX: E11.10 Type 2 diabetes mellitus with ketoacidosis without coma (principal); N17.9 Acute kidney failure, unspecified; E87.0 Hyperosmolality and hypernatremia; I48.19 Other persistent atrial fibrillation; I25.10 Atherosclerotic heart disease of native coronary artery without angina pectoris; E86.0 Dehydration; E87.8 Other disorders of electrolyte and fluid balance, not elsewhere classified; J44.9 Chronic obstructive pulmonary disease, unspecified; E78.00 Pure hypercholesterolemia, unspecified; I10 Essential (primary) hypertension; K21.9 Gastro-esophageal reflux disease without esophagitis; F31.9 Bipolar disorder, unspecified; E11.42 Type 2 diabetes mellitus with diabetic polyneuropathy; E11.43 Type 2 diabetes mellitus with diabetic autonomic (poly)neuropathy; K31.84 Gastroparesis; E11.621 Type 2 diabetes mellitus with foot ulcer; Z95.1 Presence of aortocoronary bypass graft
CPT/HCPCS: 36415; 36569; 70450; 71045; 76937; 80048; 80053; 80061; 80306; 80320; 80329; 81000; 82010; 82805; 82962; 83036; 83605; 83735; 84100; 84145; 84484; 85007; 85025; 85027; 85610; 87040; 87081; 93306; 93922; 94640; 99291

== ENCOUNTER 2021-06-06 18:33 | Emergency (ER) | payer MEDICARE ==
[~2021-06-06] VITALS: Ht 162.5 cm; Wt 76.5 kg
[~2021-06-06 18:33] MED LIST changes: +ASPI-808 PO; +ATOR20TA66 PO; +DILT120T3 PO; +FLUT1DIS27 INH; +FURO40TA4 PO; +GABA-490 PO; +GBPN600T PO; +HYDR-3820 PO; +INSU100V16 SC; +INSU100V5 SC; +IPRA4AER INH; +LORA-405 PO; +METO-333 PO; +METO50TA15 PO; +METO5TAB2 PO; +MTP25TSR PO; +POTA10TA PO; +QUET150T3 PO; +QUET300T71 PO; +RIVA2.5T5 PO; +RIVA20TA2 PO; +TIZA-169 PO
[2021-06-06] MEDS ORDERED: ROCURONIUM 10 MG/ML 5 ML SYRINGE IV ONE (18:36)
[2021-06-06] MEDS ORDERED: MIDAZOLAM 5 MG/5 ML (VERSED) VIAL IJ ONE (18:36)
[2021-06-06] MEDS ORDERED: fentaNYL INJ 100 MCG/2 ML AMP IV ONE (18:36)
[2021-06-06] MEDS ORDERED: NOREPINEPHRINE 8 MG/250 ML 250 ML IV ONE ×2 (18:45→21:56)
[2021-06-06] MEDS ORDERED: dilTIAZem DRIP PRE-MIX 125 ML IV SCH (19:15)
[2021-06-06] MEDS ORDERED: NS IV ONE (19:15)
--- NOTE | 2021-06-06 19:15 | Diagnostic Imaging Report ---
INDICATION: Intubation. TIME OF EXAM: 6:59 PM CORRELATION is made with prior chest from 04/08/2020. FINDINGS: Changes of median sternotomy are noted. ET tube has tip in good position above the vinod. There is an NG tube passing below the diaphragm. Pacer overlies the right hemithorax. The lungs appear clear. There is no effusion or pneumothorax. Heart size stable. IMPRESSION: Satisfactory placement of endotracheal tube and nasogastric tubes. No acute feature is seen. Dictated by: Dictated on workstation # [id number]
[2021-06-06 19:20] LABS: BILIRUBIN,URINE NEGATIVE (NEGATIVE); CLARITY,URINE CLEAR; COLOR,URINE YELLOW; GLUCOSE, URINE (UA) 3+ (NEGATIVE); KETONES,URINE 1+ (NEGATIVE); LEUKOCYTE ESTERASE ,URINE NEGATIVE (NEGATIVE); NITRITE,URINE NEGATIVE (NEGATIVE); PH,URINE 5.5 (5-9); PROTEIN,URINE NEGATIVE (NEGATIVE)
[2021-06-06 19:21] VITALS: BP 61/42
[2021-06-06 19:27] LABS: BASOPHILS % (AUTO) 0 % (0-10); EOSINOPHILS % (AUTO) 0 % (0-10); HEMATOCRIT 37 % (35-52); HEMOGLOBIN 10.6 g/dL (11.5-16.0); LYMPHOCYTES # (AUTO) 0.7 10^3/uL (1.0-4.0); LYMPHOCYTES % (AUTO) 3 % (12-44); MEAN CORPUSCULAR HEMOGLOBIN 28 pg (25-34); MEAN CORPUSCULAR HGB CONC 29 g/dL (32-36); MEAN CORPUSCULAR VOLUME 98 fL (80-99); MEAN PLATELET VOLUME 12.1 fL (9.0-12.2); MONOCYTES # (AUTO) 2.7 10^3/uL (0.0-1.0); MONOCYTES % (AUTO) 12 % (0-12); NEUTROPHILS # (AUTO) 19.1 10^3/uL (1.8-7.8); NEUTROPHILS % (AUTO) 84 % (42-75); PLATELET COUNT 314 10^3/uL (130-400); WHITE BLOOD COUNT 22.7 10^3/uL (4.3-11.0)
[2021-06-06 19:30] LABS: ABG BASE EXCESS -17.7 MMOL/L (-2.5-2.5); ABG OXYGEN SATURATION 75 % (94-100); ABG PCO2 36 MMHG (35-45); ABG PO2 48 MMHG (79-93); ABG TCO2 11.7 MMOL/L (21.0-31.0)
--- NOTE | 2021-06-06 19:30 | ED General ---
General Chief Complaint: Unresponsive Stated Complaint: UNRESPONSIVE Source of Information: EMS Exam Limitations: No Limitations History of Present Illness Date Seen by Provider: Jun 06, 2021 Time Seen by Provider: 18:45 Initial Comments To ER by [facility] from her home in [place] with reports of being unresponsive. Patient is a known diabetic. Lives with her at home. He reports that about 2 AM she began vomiting and became confused. He is checked her insulin and gave her insulin throughout the day but she has remained confused and lethargic. He states that she is full CODE STATUS. She has known atrial fibrillation on Xarelto. Timing/Duration: 12-24 Hours Severity: Moderate Associated Systoms: Denies Symptoms Allergies and Home Medications Allergies Coded Allergies: Penicillins (Verified Allergy, Unknown, 06/06/21) Patient Home Medication List Home Medication List Reviewed: Yes Albuterol/Ipratropium (Combivent Respimat Inhal [place]) 4 Gm Aero, 1 PUFF INH Q6H, (Reported) Entered as Reported by: YUMIKO OROSCO on 04/08/20 141 Atorvastatin Calcium (Atorvastatin Calcium) 20 Mg Tablet, 20 MG PO HS Prescribed by: VANESA MORRISSEY on 04/11/20 1243 Diltiazem HCl (Diltiazem HCl) 120 Mg Tablet, 240 MG PO DAILY, (Reported) Entered as Reported by: YUMIKO OROSCO on 04/08/20 141 Fluticasone/Salmeterol (Advair 500-50 Diskus) 1 Each Blst.w.dev, 1 PUFF INH BID, (Reported) Entered as Reported by: YUMIKO OROSCO on 04/08/20 141 Gabapentin (Gabapentin) 400 Mg Capsule, 400 MG PO TID Prescribed by: VANESA MORRISSEY on 04/11/20 1243 Hydrocodone/Acetaminophen (Hydrocodone-Acetamin 10-325 mg) 1 Each Tablet, 1 EA PO BID PRN for PAIN-MODERATE (5-7), (Reported) Entered as Reported by: YUMIKO OROSCO on 04/08/20 141 Insulin Aspart (Novolog) 100 Unit/1 Ml Susp, 5 UNITS SC TIDAC, (Reported) Entered as Reported by: YUMIKO OROSCO on 04/08/20 141 Insulin Determir (Levemir) 1,000 Units/10 Ml Soln, 35 UNITS SC BID, (Reported) Entered as Reported by: YUMIKO OROSCO on 04/08/20 1414 Lorazepam (Ativan) 1 Mg Tablet, 2 MG PO TID, (Reported) Entered as Reported by: YUMIKO OROSCO on 04/08/20 1414 Metoclopramide HCl (Metoclopramide HCl) 5 Mg Tablet, 5 MG PO TID Prescribed by: VANESA MORRISSEY on 04/11/20 1243 Metoprolol Succinate (Metoprolol Succinate) 25 Mg Tab.er.24h, 25 MG PO DAILY Prescribed by: VANESA MORRISSEY on 04/11/20 1243 Quetiapine Fumarate (Quetiapine Fumarate ER) 300 Mg Tab.er.24h, 300 MG PO HS, (Reported) Entered as Reported by: YUMIKO OROSCO on 04/08/20 1414 Rivaroxaban (Xarelto Tablet) 20 Mg Tablet, 20 MG PO DAILY@1700 Prescribed by: VANESA MORRISSEY on 04/11/20 1243 Tizanidine HCl (Tizanidine HCl) 2 Mg Tablet, 2 MG PO TID, (Reported) Entered as Reported by: YUMIKO OROSCO on 04/08/20 1414 Review of Systems Review of Systems Constitutional: see HPI, other (To obtain due to severe illness) Past Cstvmek-Tcbpwa-Lcsieq Hx Seasonal Allergies Seasonal Allergies: No Past Medical History Surgeries: Yes (Right hip, Left ankle) Appendectomy, Section, Gallbladder, Hysterectomy, Orthopedic Respiratory: Yes COPD Cardiac: No High Cholesterol, Hypertension Neurological: Yes Neuropathy Genitourinary: No Gastrointestinal: Yes Gastroesophageal Reflux Musculoskeletal: Yes (Congenital Left hand deformity) Endocrine: Yes Diabetes, Insulin dep HEENT: No Cancer: No Psychosocial: Yes Bipolar Integumentary: No Blood Disorders: No Family Medical History Patient reports no known family medical history. Physical Exam Vital Signs Vital Signs - First Documented 06/06/21 06/06/21 19:21 19:25 Pulse 142 Resp 20 B/P (MAP) 62/43 Pulse Ox 97 FiO2 40 Capillary Refill : Height, Weight, BMI Height: '" Weight: lbs. oz. kg; 27.22 BMI Method: General Appearance: Thin, Other (Thin, agonal breathing, marked distress. Pale. Unresponsive) Eyes: Bilateral Eye Normal Inspection, Bilateral Eye PERRL HEENT: PERRL/EOMI, Normal ENT Inspection, Other (Mucous membranes are very dry) Neck: Full Range of Motion, Normal Inspection, Non Tender Respiratory: Respiratory Distress, Other (Agonal breathing clear lungs) Cardiovascular: Irregularly Irregular, Tachycardia, Other (Atrial fibrillation with rapid ventricular response rate of 1 40-1 70 with hypotension and a blood pressure of 70 systolic on arrival) Gastrointestinal: Soft, Abnormal Bowel Sounds (Hypoactive) Extremity: No Calf Tenderness, Other (Left hand is congenitally deformed. Capillary refill is markedly delayed all extremities) Neurologic/Psychiatric: Other (Unresponsive ) Skin: Normal Color, Warm/Dry Focused Exam Lactate Level 06/06/21 18:53: Lactic Acid Level 2.00 Lactic Acid Level Laboratory Tests Test 06/06/21 18:53 Lactic Acid Level 2.00 MMOL/L (0.50-2.00) Procedures/Interventions Lumen: triple Central Line Procedure: betadine prep, sterile drapes applied, sterile dressing applied Position: femoral (R) Anesthesia: Lidocaine Volume Anesthetic (ccs): 5 Complications: none Post Position: sutured, good blood return Date of ETT Placement: Jun 06, 2021 Time of ETT Placement: 19:36 Intubation Method: orotracheal Tube Size: 7 Medications: Fentanyl, Rocuronium, Versed Positive End Tide CO2: Yes Breath Sounds after Intubation: bilateral-equal Intubation Complications: no complications Post Intubation Xray: Yes Additional Procedures: cardioversion/defib Progress Synchronized cardioversion at 120 J Progress/Results/Core Measures Suspected Sepsis SIRS Temperature: Pulse: Respiratory Rate: Laboratory Tests 06/06/21 18:53: White Blood Count 22.7H Blood Pressure / Mean: 06/06/21 18:53: Lactic Acid Level 2.00 Laboratory Tests 06/06/21 18:53: Creatinine 5.17H, INR Comment 1.2, Platelet Count 314, Total Bilirubin 0.3 Results/Orders Lab Results Laboratory Tests Test 06/06/21 18:53 06/06/21 19:10 Range/Units White Blood Count 22.7 H 4.3-11.0 10^3/uL Red Blood Count 3.77 L 3.80-5.11 10^6/uL Hemoglobin 10.6 L 11.5-16.0 g/dL Hematocrit 37 35-52 % Mean Corpuscular Volume 98 80-99 fL Mean Corpuscular Hemoglobin 28 25-34 pg Mean Corpuscular Hemoglobin Concent 29 L 32-36 g/dL Red Cell Distribution Width 14.1 10.0-14.5 % Platelet Count 314 130-400 10^3/uL Mean Platelet Volume 12.1 9.0-12.2 fL Immature Granulocyte % (Auto) 1 % Neutrophils (%) (Auto) 84 H 42-75 % Lymphocytes (%) (Auto) 3 L 12-44 % Monocytes (%) (Auto) 12 0-12 % Eosinophils (%) (Auto) 0 0-10 % Basophils (%) (Auto) 0 0-10 % Neutrophils # (Auto) 19.1 H 1.8-7.8 10^3/uL Lymphocytes # (Auto) 0.7 L 1.0-4.0 10^3/uL Monocytes # (Auto) 2.7 H 0.0-1.0 10^3/uL Eosinophils # (Auto) 0.0 0.0-0.3 10^3/uL Basophils # (Auto) 0.0 0.0-0.1 10^3/uL Immature Granulocyte # (Auto) 0.2 H 0.0-0.1 10^3/uL Neutrophils % (Manual) 86 % Lymphocytes % (Manual) 3 % Monocytes % (Manual) 11 % Blood Morphology Comment NORMAL Erythrocyte Sedimentation Rate 57 H 0-30 MM/HR Prothrombin Time 15.3 H 12.2-14.7 SEC INR Comment 1.2 0.8-1.4 Activated Partial Thromboplast Time 23 L 24-35 SEC D-Dimer 1.57 H 0.00-0.49 UG/ML Urine Color YELLOW Urine Clarity CLEAR Urine pH 5.5 5-9 Urine Specific Watson 1.015 L 1.016-1.022 Urine Protein NEGATIVE NEGATIVE Urine Glucose (UA) 3+ H NEGATIVE Urine Ketones 1+ H NEGATIVE Urine Nitrite NEGATIVE NEGATIVE Urine Bilirubin NEGATIVE NEGATIVE Urine Urobilinogen 0.2 < = 1.0 MG/DL Urine Leukocyte Esterase NEGATIVE NEGATIVE Urine RBC (Auto) NEGATIVE NEGATIVE Urine RBC NONE /HPF Urine WBC 2-5 /HPF Urine Crystals PRESENT H /LPF Urine Amorphous Sediment FEW SHELBY URATES H /LPF Urine Bacteria TRACE /HPF Urine Casts PRESENT /LPF Urine Hyaline Casts 5-10 H /LPF Urine Mucus NEGATIVE /LPF Urine Culture Indicated NO Sodium Level 140 135-145 MMOL/L Potassium Level 5.6 H 3.6-5.0 MMOL/L Chloride Level 101 98-107 MMOL/L Carbon Dioxide Level 8 *L 21-32 MMOL/L Anion Gap 31 H 5-14 MMOL/L Blood Urea Nitrogen 133 *H 7-18 MG/DL Creatinine 5.17 H 0.60-1.30 MG/DL Estimat Glomerular Filtration Rate 8 BUN/Creatinine Ratio 26 Glucose Level 1326 *H 70-105 MG/DL Lactic Acid Level 2.00 0.50-2.00 MMOL/L Calcium Level 7.1 L 8.5-10.1 MG/DL Corrected Calcium 8.1 L 8.5-10.1 MG/DL Magnesium Level 3.2 H 1.6-2.4 MG/DL Total Bilirubin 0.3 0.1-1.0 MG/DL Aspartate Amino Transf (AST/SGOT) 9 5-34 U/L Alanine Aminotransferase (ALT/SGPT) 9 0-55 U/L Alkaline Phosphatase 130 40-136 U/L Lactate Dehydrogenase 179 125-220 U/L Total Creatine Kinase 173 H 29-168 U/L Creatine Kinase MB 2.2 <6.6 NG/ML Myoglobin 1264.5 H 10.0-92.0 NG/ML Troponin I 0.069 H <0.028 NG/ML C-Reactive Protein High Sensitivity 6.11 H 0.00-0.50 MG/DL B-Type Natriuretic Peptide 29.2 <100.0 PG/ML Total Protein 5.5 L 6.4-8.2 GM/DL Albumin 2.7 L 3.2-4.5 GM/DL Amylase Level 258 H 25-125 U/L Lipase 104 H 8-78 U/L Procalcitonin 2.01 H <0.10 NG/ML Influenza Type A (RT-PCR) Not Detected Not Detecte Influenza Type B (RT-PCR) Not Detected Not Detecte SARS-CoV-2 RNA (RT-PCR) Not Detected Not Detecte Blood Gas Puncture Site RIGHT RADIAL Blood Gas Patient Temperature 35.5 Arterial Blood pH 7.09 *L 7.37-7.43 Arterial Blood Partial Pressure CO2 36 35-45 MMHG Arterial Blood Partial Pressure O2 48 L 79-93 MMHG Arterial Blood HCO3 11 *L 23-27 MMOL/L Arterial Blood Total CO2 11.7 L 21.0-31.0 MMOL/L Arterial Blood Oxygen Saturation 75 L 94-100 % Arterial Blood Base Excess -17.7 L -2.5-2.5 MMOL/L Luke Test YES-POS Blood Gas Ventilator Setting NO Blood Gas Inspired Oxygen NOT INDICATED My Orders Orders - FORTINO SALINAS APRN Insulin Regular Drip (Myxredlin 100 Unit (06/06/21 19:15) Diltiazem Drip Pre-Mix (Cardizem Drip Pr (06/06/21 19:15) Insulin Regular Drip (Myxredlin 100 Unit (06/06/21 19:11) Arterial Blood Gas (06/06/21 19:10) Dexmedetomidine 250 Ml Drip (Precedex Dr (06/06/21 19:45) 1/2 Ns Iv Solution (0.45% Sodium Chlorid (06/06/21 20:00) Insulin (Regular) Human (Novolin R (Per (06/06/21 20:15) Lactated Ringers (Lr 1000 Ml Iv Solution (06/06/21 21:00) Lactated Ringers (Lr 1000 Ml Iv Solution (06/06/21 21:00) Lactated Ringers (Lr 1000 Ml Iv Solution (06/06/21 21:01) Medications Given in ED Current Medications Medications Dose Ordered Sig/Divina Route Start Time Stop Time Status Last Admin Dose Admin Norepinephrine Bitartrate 250 ml @ ud STK-MED ONCE IV 06/06/21 18:45 06/06/21 18:48 DC 06/06/21 19:25 9.8 MLS/HR Sodium Chloride 2,295 ml @ 2,295 mls/hr ONCE ONCE IV 06/06/21 19:15 06/06/21 20:14 DC 06/06/21 19:21 2,295 MLS/HR Vital Signs/I&O 06/06/21 06/06/21 06/06/21 06/06/21 19:21 19:25 20:09 20:53 Pulse 142 144 130 115 Resp 20 B/P (MAP) 62/43 75/49 94/52 Pulse Ox 97 FiO2 40 Capillary Refill : Point of Care Testing Finger Stick Blood Glucose: 600 Blood Glucose Action Taken: MACHINE READ GREATER THAN 600 Departure Communication (Admissions) ON ARRIVAL Rival patient has atrial fibrillation rapid ventricular response with hypotension. We have a intraosseous access as we were unable to establish IV access and EMS was also unable to establish IV access. They started a left proximal humerus intraosseous needle. She is receiving her second liter of crystalloids on arrival. We gave 75 mcg of fentanyl, 3 mg of Versed and 50 mcg of rocuronium and proceeded with intubation. A size 7 endotracheal tube was easily slid between the vocal cords 23 cm at the teeth. No desaturation. Ventilator was set at tidal volume of 420, PEEP of 5, 40% FiO2, rate of 20. Then started a triple-lumen central line right femoral vein ultrasound guidance sterile technique. We then started her on Levophed at 0.1 joy per kilo per minute. The atrial fibrillation with rapid ventricular response and hypotension remained so we did a synchronized cardioversion at 120 J which successfully converted her to sinus rhythm for about 15 minutes at which point she went back to atrial fibrillation with rapid ventricular response. Her blood glucose was found to be too high to read so she was started on insulin drip at 6 units/h. Family was updated on the patient's grave condition I spoke with the Neo at [phone] and the son. I advised both of them I would be very surprised if she survives the hospitalization, they wish her to remain full CODE STATUS but are excepting that she may not survive. 2101-currently on Precedex for sedation, Levophed at 0.3 mics per kilo per minute. Insulin drip at 6 units an hour after a 5 unit bolus. She has had 3 L of crystalloids. She remains in atrial fibrillation current rate of 130, blood pressure 96/54. Cardizem drip 15 mg an hour. [facility] has called to accept the patient on behalf of Dr. Godfrey from the ICU. She would like to have 2 more liters of LR given and increase the ventilator respiratory rate to 26. Daughter is at the bedside Impression Primary Impression: DKA (diabetic ketoacidosis) Additional Impression: Septic shock Disposition: XF SHT-TRM HOSP Condition: Critical Transfer Transfer Reason: Exceeds level of care Time Spoke to Accepting Phy: 21:03 Departure-Patient Inst. Referrals: NO,LOCAL PHYSICIAN (PCP) Primary Care Physician FORTINO SALINAS APRN Jun 06, 2021 19:30
[2021-06-06 19:31] LABS: ABG PH 7.09 (7.37-7.43); ALLENS TEST YES-POS; INSPIRED O2 NOT INDICATED; PATIENT TEMP 35.5; VENTILATOR NO
[2021-06-06 19:35] LABS: FIBRIN DEGRADATION PRODUCTS 1.57 UG/ML (0.00-0.49); INR 1.2 (0.8-1.4); PROTHROMBIN TIME PATIENT 15.3 SEC (12.2-14.7)
[2021-06-06 19:39] LABS: AMORPHOUS SEDIMENT,UR FEW AMOR URATES /LPF; BACTERIA,URINE TRACE /HPF
[2021-06-06] MEDS ORDERED: DexMEDEtomidine 250 ML DRIP 250 ML IV ONE (19:39)
[2021-06-06 19:44] LABS: ALBUMIN 2.7 GM/DL (3.2-4.5); BILIRUBIN,TOTAL 0.3 MG/DL (0.1-1.0); CALCIUM 7.1 MG/DL (8.5-10.1); CREATININE SERUM 5.17 MG/DL (0.60-1.30); MAGNESIUM 3.2 MG/DL (1.6-2.4); POTASSIUM 5.6 MMOL/L (3.6-5.0); TOTAL PROTEIN 5.5 GM/DL (6.4-8.2)
[2021-06-06] MEDS ORDERED: DexMEDEtomidine 250 ML DRIP 250 ML IV SCH (19:45)
[2021-06-06] MEDS ORDERED: 1/2 NS IV SOLUTION 1,000 ML IV SCH (20:00)
[2021-06-06 20:02] LABS: CREATINE KINASE MB 2.2 NG/ML (<6.6)
[2021-06-06] MEDS ORDERED: inSUlin (REGULAR) HUMAN 1 UNIT/0.01 ML (CHARGE PER UNIT) IV SCH (20:15)
[2021-06-06 20:39] LABS: LYMPHOCYTES % (MANUAL) 3 %; MONOCYTES % (MANUAL) 11 %; NEUTROPHILS % (MANUAL) 86 %; RBC MORPH NORMAL
[2021-06-06] MEDS ORDERED: LACTATED RINGERS 1,000 ML IV SCH ×2 (21:00)
[2021-06-06] MEDS ORDERED: LACTATED RINGERS 2,000 ML IV ONE (21:01)
[2021-06-06 22:00] VITALS: BP 115/69
== END 2021-06-06 22:25 | disposition short-term general hospital (02) ==
LOC: EDUNIT# 18:33 → ER 18:35
DX: A41.9 Sepsis, unspecified organism (principal); R65.21 Severe sepsis with septic shock; E11.10 Type 2 diabetes mellitus with ketoacidosis without coma; E11.40 Type 2 diabetes mellitus with diabetic neuropathy, unspecified; I48.91 Unspecified atrial fibrillation; I95.9 Hypotension, unspecified; I10 Essential (primary) hypertension; E78.00 Pure hypercholesterolemia, unspecified; F31.9 Bipolar disorder, unspecified; K21.9 Gastro-esophageal reflux disease without esophagitis; J44.9 Chronic obstructive pulmonary disease, unspecified; Z20.822 Contact with and (suspected) exposure to COVID-19; Z79.4 Long term (current) use of insulin; Z79.01 Long term (current) use of anticoagulants; Z79.51 Long term (current) use of inhaled steroids; Z79.899 Other long term (current) drug therapy
CPT/HCPCS: 31500; 36415; 36680; 71045; 80053; 81000; 82150; 82550; 82553; 82805; 82947; 83605; 83615; 83690; 83735; 83874; 83880; 84145; 84484; 85007; 85027; 85379; 85610; 85652; 85730; 86141; 87040; 87077; 87088; 87186; 87636; 92960; 93005; 93041; 96361; 96365; 96366; 96367; 96368; 96375; 99291